=== PATIENT | female | born 1955 | race Caucasian/White ===

== ENCOUNTER 2018-01-03 17:07 | Emergency (ER) | payer OTHER ==
[2018-01-03 17:13] VITALS: BP 195/99; BMI 24.9
--- NOTE | 2018-01-03 17:54 | DR.GENAD ---
HPI - PCP Primary Care Physician: edson - Complaint/Symptoms Chief Complaint Doctors Comments: Patient states that she had neck pain for some times now but recently admits to pain with ROM. Chief Complaint:: pt stated she has a history of bulging disk in her neck and about 3 hours ago the pain got worse. - Source History Provided: Patient - Mode of Arrival Mode of Arrival: Ambulatory - Timing Onset of Chief Complaint: 01/03/18 PMH - PMH Past Medical History: Yes Past Medical History: Anemia, Arthritis, CVA, Depression, Dyslipidemia, Hypertension Past Surgical History: Yes Surgical History: Appendectomy, Thyroidectomy, Tonsillectomy - Family History History of Family Medical Conditions: Yes Family Medical History: Diabetes Mellitus, [place], Coronary Artery Disease, Hypertension - Social History Does patient currently use any type of tobacco product: No Have you used tobacco products in the last 12 months: No Type of Tobacco Use: None Does any household member use tobacco: No Alcohol Use: None Do you use any recreational Drugs:: No Lives With: Family Lives Where: Home - infectious screening In the last 2 months have you had wt loss of >10#?: NO Have you had fever, night sweats or hemotysis?: No Have you traveled outside the country in the last 6 months?: No Isolation: Standard ROS - Review of Systems Eyes: No Symptoms Reported ENTM: No Symptoms Reported Respiratoy: No Symptoms Reported Cardiovascular: No Symptoms Reported Gastrointestinal/Abdominal: No Symptoms Reported Genitourinary: No Symptoms Reported Neurological: No Symptoms Reported Musculoskeletal: No Symptoms Reported Integumentary: No Symptoms Reported Hematologic/Lymphatic: No Symptoms Reported Endocrine: No Symptoms Reported Psychiatric: No Symptoms Reported All Other Systems: Reviewed and Negative PE - Vital Signs Vitals: Temperature 98.9 F Pulse Rate 60 Respiratory Rate 16 Blood Pressure [Right Arm] 182/95 Blood Pressure [Left Arm] 164/74 Blood Pressure 195/99 O2 Sat by Pulse Oximetry 99 - General Limitations: No Limitations General Appearance: Alert, In No Apparent Distress - Head Head Exam: Normal Inspection, Atraumatic - Eyes Eye exam: Normal Appearance, PERRL, EOMI - ENT ENT Exam: Normal Exam External Ear Exam: Normal External Inspection TM/Canal Exam: Bilateral Normal Nose Exam: Normal Nose Exam Mouth Exam: Normal Inspection Throat Exam: Normal Inspection - Neck Neck Exam: Normal Inspection, Full ROM - Chest Chest Inspection: Normal Inspection - Respiratory Respiratory Exam: Normal Lung Sounds Bilat Respiratory Exam: Bilateral Clear to Auscultation - Cardiovascular Cardiovascular Exam: Regular Rate, Normal Rhythm - Abdominal Exam Abdominal Exam: Normal Inspection, Normal Bowel Sounds Abdominal Tenderness: negative: RUQ, RLQ, LUQ, LLQ, Epigastrium, Suprapubic, Diffuse, Mild, Moderate, Severe, Other - Extremities Extremities Exam: Normal Inspection, Full ROM - Back Back Exam: Normal Inspection - Neurologic Neurological Exam: Alert, Oriented X3, CN II-XII Intact - Psychiatric Psychiatric Exam: Normal Affect, Normal Mood - Skin Skin Exam: Warm, Dry, Intact ROR - XRAY XRAY Interpreted by: Radiologist (Cervical spine: Disc narrowing and osteophyte formation noted at multiple levels. No fracture, bone destruction or subluxation is identified. The odontoid is intact. Impressionn: Moderately severe multilevel degenerative disc disease and spondylosis. No acute fractures identified.) - Diagnosis Discharge Problem: Osteoarthritis Qualifiers: Osteoarthritis location: spine Spinal region: cervical Spinal osteoarthritis complication: unspecified spinal osteoarthritis Qualified Code(s): M47.812 - Spondylosis without myelopathy or radiculopathy, cervical region - Discharge Plan Condition: Stable - Follow ups/Referrals Follow ups/Referrals: SANDER GONZALEZ [Primary Care Provider] - 3 days - Instructions
--- NOTE | 2018-01-03 18:28 | RAD ---
Examination: Cervical spine, three views History: Neck pain, bulging disc Findings: AP, lateral and open-mouth odontoid views demonstrate normal curvature and alignment. Disc narrowing and osteophyte formation noted at multiple levels. No fracture, bone destruction or subluxa tion is identified. The odontoid is intact. Impression: Moderately severe multilevel degenerative disc disease and spondylosis. No acute features identified. Reported By:
[2018-01-03] MEDS ORDERED: TORADOL 60 MG VIAL IM ONE ×2 (18:40→18:45)
[2018-01-03] MEDS ORDERED: TORADOL 60 MG VIAL ONE (18:43)
== END 2018-01-03 19:02 | disposition home or self-care (01) ==
LOC: ER 17:20
DX: M47.812 Spondylosis without myelopathy or radiculopathy, cervical region (principal)
CPT/HCPCS: 72040; 96372; 99282; J1885

== ENCOUNTER → 2018-02-23 | Outpatient (CLI) | payer OTHER | LOC: LAB 16:47 | PROVIDERS: ATTEND Internal Medicine Gastroenterology | DX: D64.89 Other specified anemias (principal) | CPT/HCPCS: 36415; 82728; 82746; 83540; 83550 ==

== ENCOUNTER → 2018-03-29 | Outpatient (CLI) | payer OTHER ==
[~2018-03-29] MED LIST: LEXISCAN IV ONE
== END ==
LOC: RAD 08:17
PROVIDERS: ATTEND Internal Medicine Cardiovascular Disease
DX: I25.10 Atherosclerotic heart disease of native coronary artery without angina pectoris (principal)
CPT/HCPCS: 78452; 93017; A4222; A9502; J2785

== ENCOUNTER 2018-06-23 11:52 | Observation (INO) ==
[2018-06-23 15:18] VITALS: BMI 25.8
[2018-06-23] MEDS ORDERED: CATAPRES TAB 0.1 MG PO PRN (16:46)
[2018-06-23] MEDS ORDERED: APRESOLINE INJ 20 MG VIAL IVP PRN (16:46)
[2018-06-23] MEDS ORDERED: BENADRYL INJ 50 MG VIAL IVP PRN (16:49)
[2018-06-23] MEDS ORDERED: KENALOG CREAM ONE (17:10)
[2018-06-23] MEDS: KENALOG CREAM TOP SCH ×2 (17:13→22:00)
[2018-06-23] MEDS: ZESTRIL TAB 10 MG PO SCH ×2 (17:13→22:01)
[2018-06-23 17:15] LABS: BASOPHILS # (AUTO) 0.1 X10^3/uL (0.0-0.1); BASOPHILS % (AUTO) 1.1 % (0.2-1.0); EOSINOPHILS # (AUTO) 0.1 x10^3/uL (0.0-0.2); EOSINOPHILS % (AUTO) 2.2 % (0.9-2.9); HEMATOCRIT 29.7 % (36.0-47.0); HEMOGLOBIN 9.4 g/dL (12.0-16.0); LYMPHOCYTES # (AUTO) 1.9 X10^3/uL (1.3-2.9); LYMPHOCYTES % (AUTO) 34.5 % (21.0-51.0); MEAN CORPUSCULAR HGB CONC 31.7 g/dL (33.0-35.0); MEAN CORPUSCULAR VOLUME 75.8 fL (80.0-100.0); MONOCYTES # (AUTO) 0.5 x10^3/uL (0.3-0.8); MONOCYTES % (AUTO) 8.6 % (0.0-13.0); NEUTROPHILS % (AUTO) 53.6 % (42.0-75.0); PLATELET COUNT 248 X10^3/uL (150.0-450.0); RED BLOOD COUNT 3.92 X10^6/uL (3.5-5.4); RED CELL DISTRIBUTION WIDTH 17.7 % (11.6-16.5); WHITE BLOOD COUNT 5.5 X10^3/uL (3.6-10.0)
[2018-06-23 17:21] LABS: ANISOCYTOSIS SLIGHT; HYPOCHROMASIA 1+; PLATELET MORPHOLOGY COMMENT NORMAL (NORMAL)
[2018-06-23 17:22] LABS: MICROCYTOSIS SLIGHT
[2018-06-23 17:33] LABS: BLOOD UREA NITROGEN 14 mg/dL (7-18); CALCIUM 8.8 mg/dL (8.5-10.1); CHLORIDE 105 mmol/L (98-107); CREATININE 0.76 mg/dL (0.55-1.02); SODIUM 141 mmol/L (136-145); TROPONIN I < 0.02 ng/mL (0-1.5); eGFR NON BLACK RACES > 60 (>60)
[2018-06-23 17:37] LABS: ALANINE AMINOTRANSFERASE 19 Units/L (12-78); ALBUMIN 3.7 g/dL (3.4-5.0); ALKALINE PHOSPHATASE 171 Units/L (46-116); ASPARTATE AMINO TRANSFERASE 19 Units/L (15-37); CREATINE KINASE 126 Units/L (26-192); CREATINE KINASE MB 1.3 ng/mL (0-4.0); TOTAL PROTEIN 7.2 g/dL (6.4-8.2)
--- NOTE | 2018-06-23 17:58 | DR.H&P ---
H&P - History & Physical for Day of: H&P Date: 06/23/18 - Chief Complaint Chief Complaint: "feels bad" elevated blood pressure, rash - History of Present Illness History of Present Illness: 62 WF DIRECT ADMIT FROM DR JOE OFFICE WITH CO WEAKNESS, ELEVATED BP AND RASH TO LEFT THIGH AND FOREARM. PT BP IN OFFICE 212/ 120, TREATED WITH CATAPRES 0.1MG X1 WITHOUT IMPROVEMENT. PT ALSO CO FATIGUE AND SOB,PT HAS RECENT OF ANEMIA CURRENTLY UNDER THE CARE OF DR FOURNIER FOR GI. PT HAS RASH TO LEFT LLE AND LEFT ARM ONSET AFTER WORKING IN [employer] YESTERDAY, TAKEN BENADRYL PO FOR ITCHING. PT ADMITTED TO [facility] FOR TREATMENT AND EVALUATION OF HYPERTENSIVE URGENCY, SYMPOMATIC ANEMIA, PALENCIA AND WEAKNESS. - Past Medical History Past Medical History: Anemia, Arthritis, CVA, Depression, Dyslipidemia, Hypertension - Past Surgical History Surgical History: Appendectomy, Thyroidectomy, Tonsillectomy - Family History Family Medical History: Diabetes Mellitus, [place], Coronary Artery Disease, Hypertension - Social History Does patient currently use any type of tobacco product: No Have you used tobacco products in the last 12 months: No Type of Tobacco Use: None Does any household member use tobacco: No Alcohol Use: None Drug Use: None - Medications Home Medications: codeine Adverse Reaction (Verified 06/23/18 14:52) CONTINUE taking the following medications clonidine HCl 0.1 mg PO DAILY PRN 06/23/18 [History] iron-folic acid-mv, min cmb#15 [Hemocyte-Plus] 1 cap PO DAILY 06/23/18 [History] lisinopril 10 mg PO BID 06/23/18 [History] zolpidem 10 mg PO HS 06/23/18 [History] - Review of Systems Constitutional: Weakness, Malaise Eyes: No Symptoms Reported ENT: No Symptoms Reported Respiratory: SOB with Excertion Cardiovascular: Palpitations, Edema Gastrointestinal: Nausea Genitourinary: No Symptoms Reported Musculoskeletal: Back Pain Skin: Rash Neurological: Weakness - Physical Exam Vital Signs: Temperature 97.8 F Pulse Rate [Right Brachial] 65 Respiratory Rate 18 Blood Pressure [Right Arm] 169/89 Blood Pressure [Left Arm] 164/74 Blood Pressure 195/99 O2 Sat by Pulse Oximetry 95 Oriented: Normal Eyes: Normal Ear: Normal Nose: Normal Throat: Normal Respiratory: RLL Diminished, LLL Diminished Cardiovascular: Tachycardia, Edema : Normal Auscultation: Bowel Sounds: Normal Palpation: Normal Tenderness: Normal Skin: Decreased Turgur, Rash (RED MACULAR RASH TO LEFT UPPER THIGH ADN LEFT UPPER ARM) Musculoskeletal: Back:Lumbar Psychiatric: Anxiety Affect: Anxious, Depressed Speech Pattern: Clear - Assessment/Plan (1) Hypertensive urgency Status: Acute Plan: ADMIT, SERIAL CE AND EKG. OBTAIN RECENT CARDIAC STRESS TEST RESULTS FOR [facility]. IV HYDRALAZINE. ADMISSION LABS CBC CMP UA ANEMIA PANEL. CXR ON ADMISSION. RESUME HOME MEDS, TOPICAL STEROIDS FOR CONTACT DERM. BP CONTROL (2) Symptomatic anemia Status: Acute (3) Contact dermatitis Status: Acute (4) Hypertension Qualifiers: Hypertension type: essential hypertension Qualified Code(s): I10 - Essential (primary) hypertension Status: Chronic (5) Depression Status: Chronic (6) CAD (coronary artery disease) Status: Chronic (7) GERD (gastroesophageal reflux disease) Status: Chronic (8) Anxiety Status: Chronic - Allergies Allergies/Adverse Reactions: Allergies Allergy/AdvReac Type Severity Reaction Status Date / Time victoria AdvReac Verified 06/23/18 14:52
[2018-06-23] MEDS: HEMOCYTE-PLUS PO SCH (18:19)
[2018-06-23] MEDS: K-DUR TAB 20 MEQ PO SCH (18:19)
[2018-06-23] MEDS: ZOFRAN INJ 4 MG VIAL IVP PRN (18:28)
[2018-06-23 18:47] LABS: IRON 19 ug/dL (50-175)
[2018-06-23] MEDS: AMBIEN PO SCH (20:36)
--- NOTE | 2018-06-23 20:40 | RAD ---
Indication: Difficulty breathing Exam: Portable chest Comparison: 06/12/2016 Findings: The heart is mildly enlarged and more prominent. The pulmonary vessels are normal. The lung s are mildly hyperinflated. No consolidation or effusion is seen. Impression: Mild cardiomegaly with no acute pulmonary abnormality. Reported By:
[2018-06-24] MEDS: KENALOG CREAM TOP SCH ×3 (05:13→21:01)
[2018-06-24 05:38] LABS: ALANINE AMINOTRANSFERASE 16 Units/L (12-78); ALBUMIN 2.9 g/dL (3.4-5.0); ALKALINE PHOSPHATASE 144 Units/L (46-116); ASPARTATE AMINO TRANSFERASE 14 Units/L (15-37); BLOOD UREA NITROGEN 12 mg/dL (7-18); CALCIUM 8.2 mg/dL (8.5-10.1); CARBON DIOXIDE 26.7 mmol/L (21-32); CHLORIDE 108 mmol/L (98-107); COR CA(FOR HYPOALB) 9.1 mg/dL (8.5-10.1); CREATININE 0.65 mg/dL (0.55-1.02); SODIUM 141 mmol/L (136-145); eGFR NON BLACK RACES > 60 (>60)
[2018-06-24 05:41] LABS: BASOPHILS % (AUTO) 0.9 % (0.2-1.0); EOSINOPHILS # (AUTO) 0.1 x10^3/uL (0.0-0.2); EOSINOPHILS % (AUTO) 2.4 % (0.9-2.9); HEMATOCRIT 25.6 % (36.0-47.0); HEMOGLOBIN 8.2 g/dL (12.0-16.0); LYMPHOCYTES # (AUTO) 1.5 X10^3/uL (1.3-2.9); LYMPHOCYTES % (AUTO) 30.8 % (21.0-51.0); MEAN CORPUSCULAR HEMOGLOBIN 24.3 pg (27.0-34.0); MEAN PLATELET VOLUME 8.4 fL (7.4-11.0); MONOCYTES # (AUTO) 0.4 x10^3/uL (0.3-0.8); MONOCYTES % (AUTO) 8.3 % (0.0-13.0); NEUTROPHILS # (AUTO) 2.8 x10^3/uL (2.2-4.8); NEUTROPHILS % (AUTO) 57.6 % (42.0-75.0); PLATELET COUNT 219 X10^3/uL (150.0-450.0); RED BLOOD COUNT 3.36 X10^6/uL (3.5-5.4); RED CELL DISTRIBUTION WIDTH 17.6 % (11.6-16.5); WHITE BLOOD COUNT 4.9 X10^3/uL (3.6-10.0)
[2018-06-24 06:04] LABS: PLATELET MORPHOLOGY COMMENT NORMAL (NORMAL)
[2018-06-24 06:37] LABS: BILIRUBIN,URINE NEGATIVE (NEGATIVE); BLOOD/HEMOGLOBIN,URINE NEGATIVE (NEGATIVE); GLUCOSE, URINE NEGATIVE (NEGATIVE); KETONES,URINE NEGATIVE (NEGATIVE); LEUKOCYTE ESTERASE ,URINE 1+ (NEGATIVE); NITRITES,URINE NEGATIVE (NEGATIVE); PH,URINE 6.5 (5.0 - 8.0); PROTEIN,URINE NEGATIVE (NEGATIVE); UROBILINOGEN,URINE NORMAL (NORMAL)
[2018-06-24 06:46] LABS: APPEARANCE,URINE CLEAR (CLEAR); COLOR,URINE YELLOW (YELLOW)
[2018-06-24 06:47] LABS: BACTERIA,URINE NEGATIVE /HPF (NEGATIVE); CALCIUM OXALATE CRYSTALS,UR RARE /HPF (NEGATIVE); RBC,URINE NONE SEEN /HPF (NONE SEEN); SQUAMOUS EPITHELIAL CELL,UR RARE /HPF (NEGATIVE)
[2018-06-24] MEDS: ZOFRAN INJ 4 MG VIAL IVP PRN ×2 (07:50→20:15)
[2018-06-24] MEDS ORDERED: PHARMACY CONSULT - DOSE _____ XX SCH (09:00)
[2018-06-24] MEDS: HEMOCYTE-PLUS PO SCH (09:03)
[2018-06-24] MEDS: ZESTRIL TAB 10 MG PO SCH ×2 (09:03→20:15)
[2018-06-24] MEDS: K-DUR TAB 20 MEQ PO SCH (09:04)
[2018-06-24] MEDS ORDERED: PROTONIX INJ 40 MG VIAL IVP ONE (09:09)
[2018-06-24] MEDS ORDERED: NS 100 ML IV 100 ML IV ONE (10:40)
[2018-06-24] MEDS ORDERED: NS 100 ML IV 100 ML with VENOFER 400 MG IV NR ×2 (11:00)
--- NOTE | 2018-06-24 17:59 | PCM.PROG ---
Progress Note - Progress Note for Day of Date of Exam: 06/24/18 - Subjective Subjective: PT IS 62 WF DIRECT ADMIT FROM DR GONZALEZ OFFICE WITH CO ELEVATED BP , FATIGUE SYMPTOMATIC ANEMIA. PT HAD HTN URGENCY IN THE OFFICE. PT WAS ADMITTED FOR TREATMENT OF ELEVATED BP, WHICH IS MUCH IMPROVED THIS AM. PT WAS ANEMIA WITH IRON DEFICIENCY, PT CURRENTLY RECEIVING IV IRON INFUSION. PT HAS MILD RASH TO LUE AND LLE USING TOPICAL STEROIDS WITH IMPROVEMENT THIS AM.PT CO NAUSEA AND PALENCIA. PLAN TO CONTINUE PPI THERAPY, NASUEA CONTROL, BP MONITORING OCCULT STOOL, AM LABS - Past Medical Family Social History Past Med/Fam/Surg Hx: No changes since H&P Allergies: Allergies codeine Adverse Reaction (Verified 06/23/18 14:52) - Review of Systems ROS: No change since H&P - Vital Signs and I&O's Vital Signs: Temperature 98.6 F Pulse Rate [Right Brachial] 65 Respiratory Rate 18 Blood Pressure [Right Arm] 165/80 Blood Pressure [Left Arm] 164/74 Blood Pressure 195/99 O2 Sat by Pulse Oximetry 96 Intake and Output: Intake & Output 06/22/18 06/23/18 06/24/18 06/25/18 11:59 11:59 11:59 11:59 Intake Total 320 / 320 340 / 340 Balance 320 / 320 340 / 340 - Physical Exam Oriented: Normal Eyes: Normal Ear: Normal Nose: Normal Throat: Normal Respiratory: Normal Cardiovascular: Tachycardia, Edema : Normal Auscultation: Bowel Sounds: Normal Tenderness: Normal Skin: Decreased Turgur, Rash (RED MACULAR RASH TO LEFT UPPER THIGH ADN LEFT UPPER ARM) Musculoskeletal: Back:Lumbar Psychiatric: Anxiety Affect: Anxious, Depressed Speech Pattern: Clear, Appropriate - Laboratory and Diagnostics Result Diagrams: 06/25/18 04:00 06/25/18 04:00 Labs: Laboratory WBC 4.9 X10^3/uL (3.6-10.0) 06/24/18 04:05 RBC 3.36 X10^6/uL (3.5-5.4) L 06/24/18 04:05 Hgb 8.2 g/dL (12.0-16.0) L 06/24/18 04:05 Hct 25.6 % (36.0-47.0) L 06/24/18 04:05 MCV 76.0 fL (80.0-100.0) L 06/24/18 04:05 MCH 24.3 pg (27.0-34.0) L 06/24/18 04:05 MCHC 32.0 g/dL (33.0-35.0) L 06/24/18 04:05 RDW 17.6 % (11.6-16.5) H 06/24/18 04:05 Plt Count 219 X10^3/uL (150.0-450.0) 06/24/18 04:05 Plt Count Comment Adequate (ADEQUATE) 06/24/18 04:05 MPV 8.4 fL (7.4-11.0) 06/24/18 04:05 Neut % (Auto) 57.6 % (42.0-75.0) 06/24/18 04:05 Lymph % (Auto) 30.8 % (21.0-51.0) 06/24/18 04:05 [place] % (Auto) 8.3 % (0.0-13.0) 06/24/18 04:05 Eos % (Auto) 2.4 % (0.9-2.9) 06/24/18 04:05 Baso % (Auto) 0.9 % (0.2-1.0) 06/24/18 04:05 Neut # (Auto) 2.8 x10^3/uL (2.2-4.8) 06/24/18 04:05 Lymph # (Auto) 1.5 X10^3/uL (1.3-2.9) 06/24/18 04:05 [place] # (Auto) 0.4 x10^3/uL (0.3-0.8) 06/24/18 04:05 Eos # (Auto) 0.1 x10^3/uL (0.0-0.2) 06/24/18 04:05 Baso # (Auto) 0.0 X10^3/uL (0.0-0.1) 06/24/18 04:05 Absolute Nucleated RBC 0.1 /100WBC 06/24/18 04:05 Plt Morphology Comment Normal (NORMAL) 06/24/18 04:05 RBC Morphology Normal (NORMAL) 06/24/18 04:05 Hypochromasia 1+ A 06/23/18 17:01 Anisocytosis Slight A 06/23/18 17:01 Microcytosis Slight A 06/23/18 17:01 Sodium 141 mmol/L (136-145) 06/24/18 04:05 Corrected Sodium TNP 06/24/18 04:05 Potassium 3.6 mmol/L (3.5-5.1) 06/24/18 04:05 Chloride 108 mmol/L (98-107) H 06/24/18 04:05 Carbon Dioxide 26.7 mmol/L (21-32) 06/24/18 04:05 BUN 12 mg/dL (7-18) 06/24/18 04:05 Creatinine 0.65 mg/dL (0.55-1.02) 06/24/18 04:05 Est GFR (MDRD) Af Amer > 60 (>60) 06/24/18 04:05 Est GFR (MDRD) Non-Af > 60 (>60) 06/24/18 04:05 Glucose 98 mg/dL (65-99) 06/24/18 04:05 Calcium 8.2 mg/dL (8.5-10.1) L 06/24/18 04:05 Corrected Calcium 9.1 mg/dL (8.5-10.1) 06/24/18 04:05 Magnesium 2.1 mg/dL (1.7-2.9) 06/23/18 17:01 Iron 19 ug/dL (50-175) L 06/23/18 17:01 Transferrin 304 mg/dL (202-364) 06/23/18 17:01 Ferritin 5 ng/mL (8-252) L 06/23/18 17:01 Total Bilirubin 0.10 mg/dL (0.2-1.0) L 06/24/18 04:05 AST 14 Units/L (15-37) L 06/24/18 04:05 ALT 16 Units/L (12-78) 06/24/18 04:05 Alkaline Phosphatase 144 Units/L (46-116) H 06/24/18 04:05 Creatine Kinase 126 Units/L (26-192) 06/23/18 17:01 CK-MB (CK-2) 1.3 ng/mL (0-4.0) 06/23/18 17:01 CK/CKMB % Calc 1.0 % (<4) 06/23/18 17:01 Troponin I < 0.02 ng/mL (0-1.5) 06/23/18 17:01 Total Protein 6.0 g/dL (6.4-8.2) L 06/24/18 04:05 Albumin 2.9 g/dL (3.4-5.0) L 06/24/18 04:05 Globulin 3.1 g/dL (2.5-4.5) 06/24/18 04:05 Albumin/Globulin Ratio 0.9 Ratio (1.1-2.1) L 06/24/18 04:05 Vitamin B12 183 pg/mL (193-986) L 06/23/18 17:01 Folate 19.4 ng/mL (>8.6) 06/23/18 17:01 Specimen Type Random urine 06/24/18 06:26 Urine Color Yellow (YELLOW) 06/24/18 06:26 Urine Appearance Clear (CLEAR) 06/24/18 06:26 Urine pH 6.5 (5.0 - 8.0) 06/24/18 06:26 Ur Specific [place] 1.015 (1.000-1.030) 06/24/18 06:26 Urine Protein Negative (NEGATIVE) 06/24/18 06:26 Urine Glucose (UA) Negative (NEGATIVE) 06/24/18 06:26 Urine Ketones Negative (NEGATIVE) 06/24/18 06:26 Urine Occult Blood Negative (NEGATIVE) 06/24/18 06:26 Urine Nitrite Negative (NEGATIVE) 06/24/18 06:26 Urine Bilirubin Negative (NEGATIVE) 06/24/18 06:26 Urine Urobilinogen Normal (NORMAL) 06/24/18 06:26 Ur Leukocyte Esterase 1+ (NEGATIVE) 06/24/18 06:26 Urine RBC None seen /HPF (NONE SEEN) 06/24/18 06:26 Urine WBC 0-2 /HPF (NONE SEEN) 06/24/18 06:26 Ur Squamous Epith Cells Rare /HPF (NEGATIVE) 06/24/18 06:26 Calcium Oxalate Crystal Rare /HPF (NEGATIVE) 06/24/18 06:26 Urine Bacteria Negative /HPF (NEGATIVE) 06/24/18 06:26 Ur Culture Indicated? No/not indicated 06/24/18 06:26 - Plan (1) Hypertensive urgency Status: Acute Plan: IV IRON INFUSION. PT CO NAUSEA AND PALENCIA. PLAN TO CONTINUE PPI THERAPY, NASUEA CONTROL, BP MONITORING OCCULT STOOL, AM LABS. RESUME HOME MEDS, TOPICAL STEROIDS FOR CONTACT DERM. BP CONTROL (2) Symptomatic anemia Status: Acute (3) Contact dermatitis Status: Acute (4) Hypertension Status: Chronic Qualifiers: Hypertension type: essential hypertension Qualified Code(s): I10 - Essential (primary) hypertension (5) Depression Status: Chronic (6) CAD (coronary artery disease) Status: Chronic (7) GERD (gastroesophageal reflux disease) Status: Chronic (8) Anxiety Status: Chronic
[2018-06-24] MEDS: AMBIEN PO SCH (20:15)
[2018-06-25] MEDS: KENALOG CREAM TOP SCH (05:03)
[2018-06-25 05:21] LABS: BASOPHILS % (AUTO) 0.4 % (0.2-1.0); EOSINOPHILS # (AUTO) 0.1 x10^3/uL (0.0-0.2); EOSINOPHILS % (AUTO) 0.8 % (0.9-2.9); HEMATOCRIT 31.9 % (36.0-47.0); HEMOGLOBIN 9.9 g/dL (12.0-16.0); LYMPHOCYTES # (AUTO) 1.7 X10^3/uL (1.3-2.9); LYMPHOCYTES % (AUTO) 18.5 % (21.0-51.0); MEAN CORPUSCULAR HEMOGLOBIN 23.7 pg (27.0-34.0); MEAN CORPUSCULAR HGB CONC 31.2 g/dL (33.0-35.0); MEAN CORPUSCULAR VOLUME 76.2 fL (80.0-100.0); MEAN PLATELET VOLUME 8.3 fL (7.4-11.0); MONOCYTES # (AUTO) 0.7 x10^3/uL (0.3-0.8); MONOCYTES % (AUTO) 7.7 % (0.0-13.0); NEUTROPHILS # (AUTO) 6.8 x10^3/uL (2.2-4.8); NEUTROPHILS % (AUTO) 72.6 % (42.0-75.0); PLATELET COUNT 279 X10^3/uL (150.0-450.0); RED BLOOD COUNT 4.18 X10^6/uL (3.5-5.4); RED CELL DISTRIBUTION WIDTH 17.4 % (11.6-16.5); WHITE BLOOD COUNT 9.4 X10^3/uL (3.6-10.0)
[2018-06-25 05:39] LABS: ALANINE AMINOTRANSFERASE 15 Units/L (12-78); ALBUMIN 2.9 g/dL (3.4-5.0); ALKALINE PHOSPHATASE 144 Units/L (46-116); ASPARTATE AMINO TRANSFERASE 14 Units/L (15-37); BLOOD UREA NITROGEN 15 mg/dL (7-18); CALCIUM 8.3 mg/dL (8.5-10.1); CARBON DIOXIDE 26.8 mmol/L (21-32); CHLORIDE 108 mmol/L (98-107); COR CA(FOR HYPOALB) 9.2 mg/dL (8.5-10.1); CREATININE 0.87 mg/dL (0.55-1.02); SODIUM 142 mmol/L (136-145); TOTAL PROTEIN 5.9 g/dL (6.4-8.2); eGFR NON BLACK RACES > 60 (>60)
[2018-06-25 05:42] LABS: HYPOCHROMASIA SLIGHT; PLATELET MORPHOLOGY COMMENT NORMAL (NORMAL)
[2018-06-25] MEDS: K-DUR TAB 20 MEQ PO SCH (08:51)
[2018-06-25] MEDS: ZESTRIL TAB 10 MG PO SCH (08:51)
[2018-06-25] MEDS: HEMOCYTE-PLUS PO SCH (08:51)
[2018-06-25] MEDS: ZOFRAN INJ 4 MG VIAL IVP PRN (08:57)
[2018-06-25] MEDS ORDERED: NS 100 ML IV 100 ML with VENOFER 200 MG IV NR ×2 (10:00)
[2018-06-25] MEDS ORDERED: PHARMACY CONSULT - DOSE _____ XX SCH (10:00)
[2018-06-25] MEDS ORDERED: CARAFATE PO SCH (11:30)
[2018-06-25 13:18] VITALS: BP 156/99
--- NOTE | 2018-06-25 15:00 | PCM.DCPLAN ---
Discharge Summary - Admission Date Date of Admission: 06/23/18 - Discharge Date Discharge Date: 06/25/18 - Admission Diagnoses (1) Hypertensive urgency Status: Acute (2) Symptomatic anemia Status: Acute (3) Contact dermatitis Status: Acute (4) Hypertension Status: Chronic (5) Depression Status: Chronic (6) CAD (coronary artery disease) Status: Chronic (7) GERD (gastroesophageal reflux disease) Status: Chronic (8) Anxiety Status: Chronic - Discharge Diagnoses Discharge Diagnosis: SAME ADMISSION, RESOLUTION OF HYPERTENSIVE URGENCY - Discharge Medications Discharge Medications: Home Medication List clonidine HCl 0.1 mg PO DAILY PRN 06/23/18 [History] iron-folic acid-mv, min cmb#15 [Hemocyte-Plus] 1 cap PO DAILY 06/23/18 [History] lisinopril 10 mg PO BID 06/23/18 [History] zolpidem 10 mg PO HS 06/23/18 [History] Prescriptions: - Hospital Course Vital Signs: Temperature 98.3 F Pulse Rate [Left Brachial] 67 Pulse Rate [Right Brachial] 66 Respiratory Rate 20 Blood Pressure [Right Arm] 156/77 Blood Pressure [Left Arm] 156/99 Blood Pressure 195/99 O2 Sat by Pulse Oximetry 94 Latest Lab Results: Laboratory Last Values WBC 9.4 X10^3/uL (3.6-10.0) 06/25/18 04:00 RBC 4.18 X10^6/uL (3.5-5.4) 06/25/18 04:00 Hgb 9.9 g/dL (12.0-16.0) L 06/25/18 04:00 Hct 31.9 % (36.0-47.0) L 06/25/18 04:00 MCV 76.2 fL (80.0-100.0) L 06/25/18 04:00 MCH 23.7 pg (27.0-34.0) L 06/25/18 04:00 MCHC 31.2 g/dL (33.0-35.0) L 06/25/18 04:00 RDW 17.4 % (11.6-16.5) H 06/25/18 04:00 Plt Count 279 X10^3/uL (150.0-450.0) 06/25/18 04:00 Plt Count Comment Adequate (ADEQUATE) 06/25/18 04:00 MPV 8.3 fL (7.4-11.0) 06/25/18 04:00 Neut % (Auto) 72.6 % (42.0-75.0) 06/25/18 04:00 Lymph % (Auto) 18.5 % (21.0-51.0) L 06/25/18 04:00 [place] % (Auto) 7.7 % (0.0-13.0) 06/25/18 04:00 Eos % (Auto) 0.8 % (0.9-2.9) L 06/25/18 04:00 Baso % (Auto) 0.4 % (0.2-1.0) 06/25/18 04:00 Neut # (Auto) 6.8 x10^3/uL (2.2-4.8) H 06/25/18 04:00 Lymph # (Auto) 1.7 X10^3/uL (1.3-2.9) 06/25/18 04:00 [place] # (Auto) 0.7 x10^3/uL (0.3-0.8) 06/25/18 04:00 Eos # (Auto) 0.1 x10^3/uL (0.0-0.2) 06/25/18 04:00 Baso # (Auto) 0.0 X10^3/uL (0.0-0.1) 06/25/18 04:00 Absolute Nucleated RBC 0.1 /100WBC 06/25/18 04:00 Plt Morphology Comment Normal (NORMAL) 06/25/18 04:00 RBC Morphology Abnormal (NORMAL) A 06/25/18 04:00 Hypochromasia Slight A 06/25/18 04:00 Anisocytosis Slight A 06/23/18 17:01 Microcytosis Slight A 06/23/18 17:01 Sodium 142 mmol/L (136-145) 06/25/18 04:00 Corrected Sodium TNP 06/25/18 04:00 Potassium 4.3 mmol/L (3.5-5.1) 06/25/18 04:00 Chloride 108 mmol/L (98-107) H 06/25/18 04:00 Carbon Dioxide 26.8 mmol/L (21-32) 06/25/18 04:00 BUN 15 mg/dL (7-18) 06/25/18 04:00 Creatinine 0.87 mg/dL (0.55-1.02) 06/25/18 04:00 Est GFR (MDRD) Af Amer > 60 (>60) 06/25/18 04:00 Est GFR (MDRD) Non-Af > 60 (>60) 06/25/18 04:00 Glucose 105 mg/dL (65-99) H 06/25/18 04:00 Calcium 8.3 mg/dL (8.5-10.1) L 06/25/18 04:00 Corrected Calcium 9.2 mg/dL (8.5-10.1) 06/25/18 04:00 Magnesium 2.1 mg/dL (1.7-2.9) 06/23/18 17:01 Iron 19 ug/dL (50-175) L 06/23/18 17:01 Transferrin 304 mg/dL (202-364) 06/23/18 17:01 Ferritin 5 ng/mL (8-252) L 06/23/18 17:01 Total Bilirubin 0.10 mg/dL (0.2-1.0) L 06/25/18 04:00 AST 14 Units/L (15-37) L 06/25/18 04:00 ALT 15 Units/L (12-78) 06/25/18 04:00 Alkaline Phosphatase 144 Units/L (46-116) H 06/25/18 04:00 Creatine Kinase 126 Units/L (26-192) 06/23/18 17:01 CK-MB (CK-2) 1.3 ng/mL (0-4.0) 06/23/18 17:01 CK/CKMB % Calc 1.0 % (<4) 06/23/18 17:01 Troponin I < 0.02 ng/mL (0-1.5) 06/23/18 17:01 Total Protein 5.9 g/dL (6.4-8.2) L 06/25/18 04:00 Albumin 2.9 g/dL (3.4-5.0) L 06/25/18 04:00 Globulin 3.0 g/dL (2.5-4.5) 06/25/18 04:00 Albumin/Globulin Ratio 1.0 Ratio (1.1-2.1) L 06/25/18 04:00 Vitamin B12 183 pg/mL (193-986) L 06/23/18 17:01 Folate 19.4 ng/mL (>8.6) 06/23/18 17:01 Specimen Type Random urine 06/24/18 06:26 Urine Color Yellow (YELLOW) 06/24/18 06:26 Urine Appearance Clear (CLEAR) 06/24/18 06:26 Urine pH 6.5 (5.0 - 8.0) 06/24/18 06:26 Ur Specific [place] 1.015 (1.000-1.030) 06/24/18 06:26 Urine Protein Negative (NEGATIVE) 06/24/18 06:26 Urine Glucose (UA) Negative (NEGATIVE) 06/24/18 06:26 Urine Ketones Negative (NEGATIVE) 06/24/18 06:26 Urine Occult Blood Negative (NEGATIVE) 06/24/18 06:26 Urine Nitrite Negative (NEGATIVE) 06/24/18 06:26 Urine Bilirubin Negative (NEGATIVE) 06/24/18 06:26 Urine Urobilinogen Normal (NORMAL) 06/24/18 06:26 Ur Leukocyte Esterase 1+ (NEGATIVE) 06/24/18 06:26 Urine RBC None seen /HPF (NONE SEEN) 06/24/18 06:26 Urine WBC 0-2 /HPF (NONE SEEN) 06/24/18 06:26 Ur Squamous Epith Cells Rare /HPF (NEGATIVE) 06/24/18 06:26 Calcium Oxalate Crystal Rare /HPF (NEGATIVE) 06/24/18 06:26 Urine Bacteria Negative /HPF (NEGATIVE) 06/24/18 06:26 Ur Culture Indicated? No/not indicated 06/24/18 06:26 Hospital Course: T IS 62 WF DIRECT ADMIT FROM DR GONZALEZ OFFICE WITH CO ELEVATED BP, FATIGUE SYMPTOMATIC ANEMIA. PT HAD HTN URGENCY IN THE OFFICE. PT WAS ADMITTED FOR TREATMENT OF ELEVATED BP AND "FEELING BAD, TIRED"PT WAS ANEMIA WITH IRON DEFICIENCY, PT CURRENTLY RECEIVING IV IRON INFUSION. PT HAS MILD RASH TO LUE AND LLE USING TOPICAL STEROIDS WITH IMPROVEMENT.PT BP ON ADMISSION 182/95 AFTER TREATMENT IN OFFICE WITH PO CATAPRES .1 PT BP STABLE THIS AM UPON D/C 135/60. PT HGB 9.4 ON ADMISSION, 8.2 AFTER HYDRATION. PT RECEIVED IRON INFUSION WITH HGB 9.9 UPON D/C. PT VERBALIZED SHE FEELS BETTER. PT UNDER THE CARE OF GI, SWALLOWED CAMERA FOR UPPER GI ONE WEEK AGO RESULTS PENDING. PT ALSO SEEN RECENTLY BY [employer] FOR ROUTINE VISIT FOR CAD WITH STRESS TEST PENDING. DISCUSSED NEED TO CONTINUE PPI THERAPY, NASUEA CONTROL, BP MONITORING. PT GIVEN ORDER FOR STOOL STUDIES ON OP BASIS DUE TO UNABILITY TO PROVIDE SPECIMEN DURING THIS ADMISSION. PT INSTRUCTED TO BE COMPLIANT WITH PRESCRIPTION MEDICATION, KEEP BP DIARY, REST AND HYDRATE, RETURN TO ER IF CONDITION RETURNS OR WORSENS FOLLOW UP WITH DR GONZALEZ IN ONE WEEK, GI AND CARDIOLOGY SCHEDULED. - Discharge Plan Disposition: HOME, SELF-CARE Condition: Stable - Follow ups/Referrals Follow ups/Referrals: NOE BLAND [Nurse Practitioner] - 07/05/18 2:45 pm - Instructions Instructions: Anemia, Stool for Occult Blood Test, Hypertension, [id number], Diarrhea, Adult, [id number] Additional Instructions: Collect stool specimen and bring to hospital for stool studies. Forms: Patient Portal
== END 2018-06-25 12:45 | disposition home or self-care (01) ==
LOC: MED/SURG
PROVIDERS: ADMIT Internal Medicine; ATTEND Internal Medicine
DX: F41.8 Other specified anxiety disorders; I25.10 Atherosclerotic heart disease of native coronary artery without angina pectoris; F32.89 Other specified depressive episodes; I10 Essential (primary) hypertension; R94.31 Abnormal electrocardiogram [ECG] [EKG]; I16.0 Hypertensive urgency; R06.02 Shortness of breath; E78.2 Mixed hyperlipidemia; D64.89 Other specified anemias; D50.0 Iron deficiency anemia secondary to blood loss (chronic); R53.1 Weakness; Z79.899 Other long term (current) drug therapy; L25.9 Unspecified contact dermatitis, unspecified cause; R51 Headache
CPT/HCPCS: 36415; 71010; 71045; 80053; 81001; 82550; 82553; 82607; 82728; 82746; 83540; 83735; 84466; 84484; 85025; 93005; 93010; A4222; C9113; G0378; J0360; J1756; J2405; J7050

== ENCOUNTER 2018-06-28 09:17 | Inpatient (IN) ==
[2018-06-28] MEDS ORDERED: NS 1000 ML 1,000 ML ONE (10:50)
[2018-06-28] MEDS ORDERED: NS 100 ML IV + SPIKE MINIBAG* 100 ML IV ONE ×2 (10:50→20:11)
[2018-06-28 11:40] LABS: BASOPHILS % (AUTO) 0.6 % (0.2-1.0); EOSINOPHILS % (AUTO) 0.5 % (0.9-2.9); HEMATOCRIT 30.1 % (36.0-47.0); HEMOGLOBIN 9.7 g/dL (12.0-16.0); LYMPHOCYTES # (AUTO) 1.4 X10^3/uL (1.3-2.9); LYMPHOCYTES % (AUTO) 18.2 % (21.0-51.0); MEAN CORPUSCULAR HEMOGLOBIN 24.6 pg (27.0-34.0); MEAN CORPUSCULAR HGB CONC 32.1 g/dL (33.0-35.0); MEAN CORPUSCULAR VOLUME 76.7 fL (80.0-100.0); MEAN PLATELET VOLUME 7.8 fL (7.4-11.0); MONOCYTES # (AUTO) 0.7 x10^3/uL (0.3-0.8); MONOCYTES % (AUTO) 9.6 % (0.0-13.0); NEUTROPHILS # (AUTO) 5.5 x10^3/uL (2.2-4.8); NEUTROPHILS % (AUTO) 71.1 % (42.0-75.0); PLATELET COUNT 258 X10^3/uL (150.0-450.0); RED BLOOD COUNT 3.92 X10^6/uL (3.5-5.4); RED CELL DISTRIBUTION WIDTH 17.7 % (11.6-16.5); WHITE BLOOD COUNT 7.7 X10^3/uL (3.6-10.0)
[2018-06-28 11:48] VITALS: BMI 24.9
[2018-06-28 11:50] LABS: ALANINE AMINOTRANSFERASE 18 Units/L (12-78); ALBUMIN 3.5 g/dL (3.4-5.0); ALKALINE PHOSPHATASE 163 Units/L (46-116); ASPARTATE AMINO TRANSFERASE 18 Units/L (15-37); BLOOD UREA NITROGEN 10 mg/dL (7-18); CALCIUM 8.9 mg/dL (8.5-10.1); CARBON DIOXIDE 26.2 mmol/L (21-32); CHLORIDE 105 mmol/L (98-107); CREATININE 0.68 mg/dL (0.55-1.02); SODIUM 138 mmol/L (136-145); TOTAL PROTEIN 7.1 g/dL (6.4-8.2); eGFR NON BLACK RACES > 60 (>60)
[2018-06-28] MEDS: TEFLARO IV SCH ×2 (12:03→20:13)
[2018-06-28] MEDS: PROTONIX INJ 40 MG VIAL IVP SCH (12:03)
[2018-06-28] MEDS: CARAFATE PO SCH ×3 (12:03→20:13)
[2018-06-28 12:08] LABS: PLATELET MORPHOLOGY COMMENT NORMAL (NORMAL)
[2018-06-28] MEDS: ZOFRAN INJ 4 MG VIAL IVP PRN (12:31)
[2018-06-28] MEDS: ZESTRIL TAB 10 MG PO SCH ×2 (12:31→20:14)
[2018-06-28] MEDS: CATAPRES TAB 0.1 MG PO PRN (12:31)
--- NOTE | 2018-06-28 15:10 | VAS ---
Bilateral upper extremity ultrasound Indication: Right upper extremity cellulitis with concern for DVT. Technique: Grayscale with color and spectral Doppler imaging of the right upper extremity was perform ed. Findings: The right upper extremity venous system demonstrated compression with augmentation and norm al spectral imaging. The venous system from the axillary to the ulnar vein was visualized. The right subclavian and jugular vein were free of thrombosis. There was questionable small nonocclusive clot w ithin the right basilic vein at the level of the elbow. Conclusion: 1. No evidence of right upper extremity DVT. 2. Small nonocclusive clot within the right basilic vein at the level of the elbow Reported By:
[2018-06-28] MEDS: TYLENOL 325 MG TAB PO PRN (16:57)
[2018-06-28] MEDS: ULTRAM PO PRN (20:13)
[2018-06-28] MEDS: ASPIRIN EC 81 MG PO SCH (20:14)
[2018-06-28] MEDS: AMBIEN PO PRN (20:55)
[2018-06-29] MEDS: ULTRAM PO PRN ×5 (00:15→21:18)
[2018-06-29] MEDS: ZOFRAN INJ 4 MG VIAL IVP PRN ×3 (00:35→21:20)
[2018-06-29] MEDS: CARAFATE PO SCH ×4 (05:32→21:18)
[2018-06-29 07:06] LABS: BASOPHILS % (AUTO) 0.5 % (0.2-1.0); EOSINOPHILS # (AUTO) 0.2 x10^3/uL (0.0-0.2); EOSINOPHILS % (AUTO) 2.3 % (0.9-2.9); HEMATOCRIT 26.7 % (36.0-47.0); HEMOGLOBIN 8.6 g/dL (12.0-16.0); LYMPHOCYTES % (AUTO) 14.5 % (21.0-51.0); MEAN CORPUSCULAR HEMOGLOBIN 25.1 pg (27.0-34.0); MEAN CORPUSCULAR VOLUME 78.4 fL (80.0-100.0); MEAN PLATELET VOLUME 8.2 fL (7.4-11.0); MONOCYTES # (AUTO) 0.7 x10^3/uL (0.3-0.8); NEUTROPHILS # (AUTO) 4.9 x10^3/uL (2.2-4.8); NEUTROPHILS % (AUTO) 72.7 % (42.0-75.0); PLATELET COUNT 195 X10^3/uL (150.0-450.0); RED CELL DISTRIBUTION WIDTH 17.8 % (11.6-16.5); WHITE BLOOD COUNT 6.7 X10^3/uL (3.6-10.0)
[2018-06-29 07:13] LABS: BILIRUBIN,URINE NEGATIVE (NEGATIVE); BLOOD/HEMOGLOBIN,URINE NEGATIVE (NEGATIVE); GLUCOSE, URINE NEGATIVE (NEGATIVE); KETONES,URINE NEGATIVE (NEGATIVE); LEUKOCYTE ESTERASE ,URINE 1+ (NEGATIVE); NITRITES,URINE NEGATIVE (NEGATIVE); PROTEIN,URINE 2+ (NEGATIVE); UROBILINOGEN,URINE NORMAL (NORMAL)
[2018-06-29 07:20] LABS: PLATELET MORPHOLOGY COMMENT NORMAL (NORMAL)
[2018-06-29 07:23] LABS: ALANINE AMINOTRANSFERASE 16 Units/L (12-78); ALBUMIN 2.9 g/dL (3.4-5.0); ALKALINE PHOSPHATASE 135 Units/L (46-116); ASPARTATE AMINO TRANSFERASE 16 Units/L (15-37); BLOOD UREA NITROGEN 18 mg/dL (7-18); CALCIUM 8.1 mg/dL (8.5-10.1); CARBON DIOXIDE 26.5 mmol/L (21-32); CHLORIDE 107 mmol/L (98-107); SODIUM 139 mmol/L (136-145); TOTAL PROTEIN 6.2 g/dL (6.4-8.2); eGFR NON BLACK RACES > 60 (>60)
[2018-06-29 07:36] LABS: APPEARANCE,URINE CLEAR (CLEAR); BACTERIA,URINE NEGATIVE /HPF (NEGATIVE); COLOR,URINE YELLOW (YELLOW); RBC,URINE 0-2 /HPF (NONE SEEN); SQUAMOUS EPITHELIAL CELL,UR FEW /HPF (NEGATIVE)
[2018-06-29] MEDS ORDERED: NS 100 ML IV + SPIKE MINIBAG* 100 ML IV ONE ×2 (08:24→20:24)
[2018-06-29] MEDS: TEFLARO IV SCH ×2 (08:53→21:18)
[2018-06-29] MEDS: PROTONIX INJ 40 MG VIAL IVP SCH (08:53)
[2018-06-29] MEDS: ASPIRIN EC 81 MG PO SCH (08:53)
[2018-06-29] MEDS: ZESTRIL TAB 10 MG PO SCH ×2 (08:53→21:18)
[2018-06-29] MEDS: PHENERGAN INJ 25 MG IVP PRN ×2 (09:39→22:15)
--- NOTE | 2018-06-29 10:59 | CT ---
Indication: Headaches Exam: CT head without contrast. Comparison: 03/03/2015 Findings: The ventricles are normal mildly enlarged there is mild prominence of the cortical sulci. T here is moderate periventricular low density bilaterally with small old lacunar infarcts in the coron a radiata on the right extending inferiorly which are unchanged. There is an old cortical infarct davon ng the right occipital lobe medially and inferiorly which is unchanged. The midline structures are un remarkable. The bones are intact. Impression: Mild atrophy and moderate chronic microischemic changes the deep white matter with no acute abnormali ty seen. 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 Reported By:
[2018-06-29] MEDS: TYLENOL 325 MG TAB PO PRN (12:14)
--- NOTE | 2018-06-29 17:53 | DR.H&P ---
H&P - History & Physical for Day of: H&P Date: 06/28/18 - Chief Complaint Chief Complaint: RUE PAIN REDNESS AND SWELLING TO OLD IV SITE, UPPER ABDOMNINAL PAIN AND NAUSEA "SICK ON STOMACH" - History of Present Illness History of Present Illness: 62 WF DIRECT ADMIT FROM DR JOE OFFICE WITH CELLULITIS TO RUE FOLLOWING IV SITE FROM HOSPITALIZATION LAST THURSDAY. PT STATES REDNESS, FEVER AND PAIN TO SITE X 2 DAYS AND FELT LOW GRADE FEVER. PT CO UPPER ABDOMINAL PAIN, NO APPETITE, N/V AND WEAKNESS. PT HAS PMH OF HTN, ANEMIA, AND GERD. PT ADMITTED FOR TREATMENT AND EVALUATION OF ACUTE ILLNESS - Past Medical History Past Medical History: Anemia, Arthritis, CVA, Depression, Dyslipidemia, Hypertension - Past Surgical History Surgical History: Appendectomy, Thyroidectomy, Tonsillectomy - Family History Family Medical History: Diabetes Mellitus, [place], Coronary Artery Disease, Hypertension - Social History Does patient currently use any type of tobacco product: No Have you used tobacco products in the last 12 months: No Alcohol Use: None Drug Use: None - Medications Home Medications: codeine Adverse Reaction (Verified 06/28/18 10:44) CONTINUE taking the following medications cyanocobalamin (vitamin B-12) 1 ml IM QWEEK 06/28/18 [History] ferrous sulfate 1 tab PO DAILY 06/28/18 [History] ondansetron 1 tab PO Q8H 06/28/18 [History] triamcinolone acetonide 0.1 % TOPICAL BID 06/28/18 [History] - Review of Systems Constitutional: Fever, Weakness Eyes: No Symptoms Reported ENT: No Symptoms Reported Respiratory: SOB with Excertion Cardiovascular: No Symptoms Reported, Edema Gastrointestinal: Nausea, Vomiting, Abdominal Pain Genitourinary: No Symptoms Reported Musculoskeletal: Arm Pain Skin: Rash Neurological: Weakness - Physical Exam Vital Signs: Temperature 98.5 F Pulse Rate [Left Brachial] 68 Respiratory Rate 20 Blood Pressure [Right Arm] 104/54 Blood Pressure [Left Arm] 156/99 Blood Pressure 156/99 O2 Sat by Pulse Oximetry 97 Oriented: Normal Eyes: Normal Ear: Normal Nose: Normal Throat: Normal Respiratory: RLL Diminished, LLL Diminished Cardiovascular: Normal, Edema : Normal Auscultation: Bowel Sounds: Normal Palpation: Normal Tenderness: RUQ, Epigastric Skin: Decreased Turgur, Rash, Red, Tender, Hot (RUE, AC AREA) Musculoskeletal: Right, Arm, Back:Lumbar Psychiatric: Depression Mood Description: Depressed Speech Pattern: Clear, Appropriate - Assessment/Plan (1) Right arm cellulitis Status: Acute Plan: ADMIT, US RUE ON ADMISSION. ASA, ADMISSION LABS. BP CONTROL, PPI THERAPY , NAUSEA MEDICATION. IV ATBX THERAPY, BLOOD CULTURES. VERIFY HOME MEDS. CT HEAD DUE TO WEAKNESS AND CONTINUED CO PALENCIA'S (2) Abdominal pain Status: Acute (3) Weakness Status: Acute (4) Hypertension Qualifiers: Hypertension type: essential hypertension Qualified Code(s): I10 - Essential (primary) hypertension Status: Chronic (5) Depression Status: Chronic (6) CAD (coronary artery disease) Status: Chronic (7) GERD (gastroesophageal reflux disease) Status: Chronic (8) Symptomatic anemia Status: Acute - Allergies Allergies/Adverse Reactions: Allergies Allergy/AdvReac Type Severity Reaction Status Date / Time codeine AdvReac Verified 06/28/18 10:44
--- NOTE | 2018-06-29 17:58 | PCM.PROG ---
Progress Note - Progress Note for Day of Date of Exam: 06/29/18 - Subjective Subjective: 62 WF ADMITTED ON 06/28 WITH RUE CELLULITIS AND ABDOMINAL PAIN. PT CURRENTLY ON IV ATBX FOR CELLULITIS WITH SLIGHT IMPROVEMENT IN REDNESS. PT CONTINUES TO CO NAUSEA FOOD INTOLERANCE AND UPPER ABDOMINAL PAIN. PLAN TO OBTAIN HIDA SCAN, PT RECENTLY HAD CT ABD AND PELVIS, CONTINUE CARAFATE AND NAUSEA CONTROL, BP CONTROL - Past Medical Family Social History Past Med/Fam/Surg Hx: No changes since H&P Allergies: Allergies codeine Adverse Reaction (Verified 06/28/18 10:44) - Review of Systems ROS: No change since H&P - Vital Signs and I&O's Vital Signs: Temperature 98.5 F Pulse Rate [Left Brachial] 68 Respiratory Rate 20 Blood Pressure [Right Arm] 104/54 Blood Pressure [Left Arm] 156/99 Blood Pressure 156/99 O2 Sat by Pulse Oximetry 97 Intake and Output: Intake & Output 06/27/18 06/28/18 06/29/18 06/30/18 11:59 11:59 11:59 11:59 Intake Total 1494 / 1494 400 / 400 Balance 1494 / 1494 400 / 400 - Physical Exam Oriented: Normal Eyes: Normal Ear: Normal Nose: Normal Throat: Normal Respiratory: Normal Cardiovascular: Normal, Edema : Normal Auscultation: Bowel Sounds: Normal Tenderness: RUQ, Epigastric Skin: Decreased Turgur, Rash, Red, Tender, Hot (RUE, AC AREA) Musculoskeletal: Right, Arm, Back:Lumbar Psychiatric: Depression Mood Description: Depressed Speech Pattern: Clear, Appropriate - Laboratory and Diagnostics Result Diagrams: 06/29/18 06:13 06/29/18 06:13 Labs: Laboratory WBC 6.7 X10^3/uL (3.6-10.0) 06/29/18 06:13 RBC 3.40 X10^6/uL (3.5-5.4) L 06/29/18 06:13 Hgb 8.6 g/dL (12.0-16.0) L 06/29/18 06:13 Hct 26.7 % (36.0-47.0) L 06/29/18 06:13 MCV 78.4 fL (80.0-100.0) L 06/29/18 06:13 MCH 25.1 pg (27.0-34.0) L 06/29/18 06:13 MCHC 32.0 g/dL (33.0-35.0) L 06/29/18 06:13 RDW 17.8 % (11.6-16.5) H 06/29/18 06:13 Plt Count 195 X10^3/uL (150.0-450.0) 06/29/18 06:13 Plt Count Comment Adequate (ADEQUATE) 06/29/18 06:13 MPV 8.2 fL (7.4-11.0) 06/29/18 06:13 Neut % (Auto) 72.7 % (42.0-75.0) 06/29/18 06:13 Lymph % (Auto) 14.5 % (21.0-51.0) L 06/29/18 06:13 [place] % (Auto) 10.0 % (0.0-13.0) 06/29/18 06:13 Eos % (Auto) 2.3 % (0.9-2.9) 06/29/18 06:13 Baso % (Auto) 0.5 % (0.2-1.0) 06/29/18 06:13 Neut # (Auto) 4.9 x10^3/uL (2.2-4.8) H 06/29/18 06:13 Lymph # (Auto) 1.0 X10^3/uL (1.3-2.9) L 06/29/18 06:13 [place] # (Auto) 0.7 x10^3/uL (0.3-0.8) 06/29/18 06:13 Eos # (Auto) 0.2 x10^3/uL (0.0-0.2) 06/29/18 06:13 Baso # (Auto) 0.0 X10^3/uL (0.0-0.1) 06/29/18 06:13 Absolute Nucleated RBC 0.1 /100WBC 06/29/18 06:13 Plt Morphology Comment Normal (NORMAL) 06/29/18 06:13 RBC Morphology Normal (NORMAL) 06/29/18 06:13 Sodium 139 mmol/L (136-145) 06/29/18 06:13 Corrected Sodium TNP 06/29/18 06:13 Potassium 3.9 mmol/L (3.5-5.1) 06/29/18 06:13 Chloride 107 mmol/L (98-107) 06/29/18 06:13 Carbon Dioxide 26.5 mmol/L (21-32) 06/29/18 06:13 BUN 18 mg/dL (7-18) 06/29/18 06:13 Creatinine 0.70 mg/dL (0.55-1.02) 06/29/18 06:13 Est GFR (MDRD) Af Amer > 60 (>60) 06/29/18 06:13 Est GFR (MDRD) Non-Af > 60 (>60) 06/29/18 06:13 Glucose 107 mg/dL (65-99) H 06/29/18 06:13 Calcium 8.1 mg/dL (8.5-10.1) L 06/29/18 06:13 Corrected Calcium 9.0 mg/dL (8.5-10.1) 06/29/18 06:13 Total Bilirubin 0.30 mg/dL (0.2-1.0) 06/29/18 06:13 AST 16 Units/L (15-37) 06/29/18 06:13 ALT 16 Units/L (12-78) 06/29/18 06:13 Alkaline Phosphatase 135 Units/L (46-116) H 06/29/18 06:13 Total Protein 6.2 g/dL (6.4-8.2) L 06/29/18 06:13 Albumin 2.9 g/dL (3.4-5.0) L 06/29/18 06:13 Globulin 3.3 g/dL (2.5-4.5) 06/29/18 06:13 Albumin/Globulin Ratio 0.9 Ratio (1.1-2.1) L 06/29/18 06:13 Specimen Type Clean catch urine 06/29/18 06:56 Urine Color Yellow (YELLOW) 06/29/18 06:56 Urine Appearance Clear (CLEAR) 06/29/18 06:56 Urine pH 6.0 (5.0 - 8.0) 06/29/18 06:56 Ur Specific [place] 1.025 (1.000-1.030) 06/29/18 06:56 Urine Protein 2+ (NEGATIVE) 08/14/18 06:56 Urine Glucose (UA) Negative (NEGATIVE) 06/29/18 06:56 Urine Ketones Negative (NEGATIVE) 06/29/18 06:56 Urine Occult Blood Negative (NEGATIVE) 06/29/18 06:56 Urine Nitrite Negative (NEGATIVE) 06/29/18 06:56 Urine Bilirubin Negative (NEGATIVE) 06/29/18 06:56 Urine Urobilinogen Normal (NORMAL) 06/29/18 06:56 Ur Leukocyte Esterase 1+ (NEGATIVE) 06/29/18 06:56 Urine RBC 0-2 /HPF (NONE SEEN) 06/29/18 06:56 Urine WBC 3-5 /HPF (NONE SEEN) 06/29/18 06:56 Ur Squamous Epith Cells Few /HPF (NEGATIVE) 06/29/18 06:56 Urine Bacteria Negative /HPF (NEGATIVE) 06/29/18 06:56 Ur Culture Indicated? No/not indicated 06/29/18 06:56 - Plan (1) Right arm cellulitis Status: Acute Plan: US RUE ON ADMISSION. ASA, AMLABS. BP CONTROL, PPI THERAPY, NAUSEA MEDICATION. IV ATBX THERAPY, BLOOD CULTURES. CT HEAD DUE TO WEAKNESS AND CONTINUED CO PALENCIA'S (2) Abdominal pain Status: Acute Plan: GALL BLADDER EVALUATION, PPI, NAUSEA CONTROL. HIDA SCAN (3) Weakness Status: Acute (4) Hypertension Status: Chronic Qualifiers: Hypertension type: essential hypertension Qualified Code(s): I10 - Essential (primary) hypertension (5) Depression Status: Chronic (6) CAD (coronary artery disease) Status: Chronic (7) GERD (gastroesophageal reflux disease) Status: Chronic (8) Symptomatic anemia Status: Acute
[2018-06-29] MEDS ORDERED: NS 500 ML IV 500 ML IV ONE (22:09)
[2018-06-30] MEDS: ULTRAM PO PRN ×4 (05:15→20:34)
[2018-06-30] MEDS: ZOFRAN INJ 4 MG VIAL IVP PRN ×2 (05:16→13:10)
[2018-06-30 05:48] LABS: BASOPHILS % (AUTO) 0.9 % (0.2-1.0); EOSINOPHILS # (AUTO) 0.2 x10^3/uL (0.0-0.2); EOSINOPHILS % (AUTO) 4.4 % (0.9-2.9); HEMATOCRIT 26.8 % (36.0-47.0); HEMOGLOBIN 8.6 g/dL (12.0-16.0); LYMPHOCYTES % (AUTO) 17.8 % (21.0-51.0); MEAN CORPUSCULAR HEMOGLOBIN 25.2 pg (27.0-34.0); MEAN CORPUSCULAR HGB CONC 32.1 g/dL (33.0-35.0); MEAN CORPUSCULAR VOLUME 78.6 fL (80.0-100.0); MEAN PLATELET VOLUME 8.3 fL (7.4-11.0); MONOCYTES # (AUTO) 0.5 x10^3/uL (0.3-0.8); MONOCYTES % (AUTO) 8.9 % (0.0-13.0); NEUTROPHILS # (AUTO) 3.8 x10^3/uL (2.2-4.8); PLATELET COUNT 196 X10^3/uL (150.0-450.0); RED CELL DISTRIBUTION WIDTH 18.2 % (11.6-16.5); WHITE BLOOD COUNT 5.7 X10^3/uL (3.6-10.0)
[2018-06-30] MEDS: CARAFATE PO SCH ×4 (05:48→20:34)
[2018-06-30 06:06] LABS: ALANINE AMINOTRANSFERASE 16 Units/L (12-78); ALBUMIN 2.8 g/dL (3.4-5.0); ALKALINE PHOSPHATASE 129 Units/L (46-116); ASPARTATE AMINO TRANSFERASE 13 Units/L (15-37); BLOOD UREA NITROGEN 19 mg/dL (7-18); CALCIUM 8.3 mg/dL (8.5-10.1); CHLORIDE 107 mmol/L (98-107); COR CA(FOR HYPOALB) 9.3 mg/dL (8.5-10.1); CREATININE 0.79 mg/dL (0.55-1.02); SODIUM 140 mmol/L (136-145); TOTAL PROTEIN 6.4 g/dL (6.4-8.2); eGFR NON BLACK RACES > 60 (>60)
[2018-06-30 06:08] LABS: HYPOCHROMASIA SLIGHT; PLATELET MORPHOLOGY COMMENT NORMAL (NORMAL)
[2018-06-30] MEDS ORDERED: NS 100 ML IV 100 ML IV ONE (09:20)
[2018-06-30] MEDS: ASPIRIN EC 81 MG PO SCH (09:36)
[2018-06-30] MEDS: ZESTRIL TAB 10 MG PO SCH ×2 (09:36→20:34)
[2018-06-30] MEDS: PROTONIX INJ 40 MG VIAL IVP SCH (09:36)
[2018-06-30] MEDS: TEFLARO IV SCH ×2 (09:36→20:34)
--- NOTE | 2018-06-30 13:40 | PCM.PROG ---
Progress Note - Progress Note for Day of Date of Exam: 06/30/18 - Subjective Subjective: 62 WF ADMITTED ON 06/28 WITH RUE CELLULITIS AND ABDOMINAL PAIN. PT CURRENTLY ON IV ATBX FOR CELLULITIS WITH SLIGHT IMPROVEMENT IN REDNESS. PT CONTINUES TO CO NAUSEA FOOD INTOLERANCE AND UPPER ABDOMINAL PAIN. PLAN TO OBTAIN HIDA SCAN THIS AM. PT IS NPO FOR HIDA THIS AM, CONTINUE CARAFATE AND NAUSEA CONTROL, BP CONTROL - Past Medical Family Social History Past Med/Fam/Surg Hx: No changes since H&P Allergies: Allergies codeine Adverse Reaction (Verified 06/28/18 10:44) - Review of Systems ROS: No change since H&P - Vital Signs and I&O's Vital Signs: Temperature 98.8 F Pulse Rate [Left Brachial] 70 Respiratory Rate 20 Blood Pressure [Right Arm] 146/68 Blood Pressure [Left Arm] 112/59 Blood Pressure 156/99 O2 Sat by Pulse Oximetry 96 Intake and Output: Intake & Output 06/28/18 06/29/18 06/30/18 07/01/18 11:59 11:59 11:59 11:59 Intake Total 1494 / 1494 970 / 970 Balance 1494 / 1494 970 / 970 - Physical Exam Oriented: Normal Eyes: Normal Ear: Normal Nose: Normal Throat: Normal Respiratory: Normal Cardiovascular: Normal, Edema : Normal Auscultation: Bowel Sounds: Normal Tenderness: RUQ, Epigastric Skin: Decreased Turgur, Rash, Red, Tender, Hot (RUE, AC AREA) Musculoskeletal: Right, Arm, Back:Lumbar Psychiatric: Depression Mood Description: Depressed Speech Pattern: Clear, Appropriate - Laboratory and Diagnostics Result Diagrams: 06/30/18 05:13 06/30/18 05:13 Labs: 06/28/18 11:14 Blood Blood Culture - Preliminary 06/28/18 11:06 Blood Blood Culture - Preliminary Laboratory WBC 5.7 X10^3/uL (3.6-10.0) 06/30/18 05:13 RBC 3.40 X10^6/uL (3.5-5.4) L 06/30/18 05:13 Hgb 8.6 g/dL (12.0-16.0) L 06/30/18 05:13 Hct 26.8 % (36.0-47.0) L 06/30/18 05:13 MCV 78.6 fL (80.0-100.0) L 06/30/18 05:13 MCH 25.2 pg (27.0-34.0) L 06/30/18 05:13 MCHC 32.1 g/dL (33.0-35.0) L 06/30/18 05:13 RDW 18.2 % (11.6-16.5) H 06/30/18 05:13 Plt Count 196 X10^3/uL (150.0-450.0) 06/30/18 05:13 Plt Count Comment Adequate (ADEQUATE) 06/30/18 05:13 MPV 8.3 fL (7.4-11.0) 06/30/18 05:13 Neut % (Auto) 68.0 % (42.0-75.0) 06/30/18 05:13 Lymph % (Auto) 17.8 % (21.0-51.0) L 06/30/18 05:13 [place] % (Auto) 8.9 % (0.0-13.0) 06/30/18 05:13 Eos % (Auto) 4.4 % (0.9-2.9) H 06/30/18 05:13 Baso % (Auto) 0.9 % (0.2-1.0) 06/30/18 05:13 Neut # (Auto) 3.8 x10^3/uL (2.2-4.8) 06/30/18 05:13 Lymph # (Auto) 1.0 X10^3/uL (1.3-2.9) L 06/30/18 05:13 [place] # (Auto) 0.5 x10^3/uL (0.3-0.8) 06/30/18 05:13 Eos # (Auto) 0.2 x10^3/uL (0.0-0.2) 06/30/18 05:13 Baso # (Auto) 0.0 X10^3/uL (0.0-0.1) 06/30/18 05:13 Absolute Nucleated RBC 0.0 /100WBC 06/30/18 05:13 Plt Morphology Comment Normal (NORMAL) 06/30/18 05:13 RBC Morphology Abnormal (NORMAL) A 06/30/18 05:13 Hypochromasia Slight A 06/30/18 05:13 Sodium 140 mmol/L (136-145) 06/30/18 05:13 Corrected Sodium TNP 06/30/18 05:13 Potassium 4.4 mmol/L (3.5-5.1) 06/30/18 05:13 Chloride 107 mmol/L (98-107) 06/30/18 05:13 Carbon Dioxide 27.0 mmol/L (21-32) 06/30/18 05:13 BUN 19 mg/dL (7-18) H 06/30/18 05:13 Creatinine 0.79 mg/dL (0.55-1.02) 06/30/18 05:13 Est GFR (MDRD) Af Amer > 60 (>60) 06/30/18 05:13 Est GFR (MDRD) Non-Af > 60 (>60) 06/30/18 05:13 Glucose 96 mg/dL (65-99) 06/30/18 05:13 Calcium 8.3 mg/dL (8.5-10.1) L 06/30/18 05:13 Corrected Calcium 9.3 mg/dL (8.5-10.1) 06/30/18 05:13 Total Bilirubin 0.20 mg/dL (0.2-1.0) 06/30/18 05:13 AST 13 Units/L (15-37) L 06/30/18 05:13 ALT 16 Units/L (12-78) 06/30/18 05:13 Alkaline Phosphatase 129 Units/L (46-116) H 06/30/18 05:13 Total Protein 6.4 g/dL (6.4-8.2) 06/30/18 05:13 Albumin 2.8 g/dL (3.4-5.0) L 06/30/18 05:13 Globulin 3.6 g/dL (2.5-4.5) 06/30/18 05:13 Albumin/Globulin Ratio 0.8 Ratio (1.1-2.1) L 06/30/18 05:13 Specimen Type Clean catch urine 06/29/18 06:56 Urine Color Yellow (YELLOW) 06/29/18 06:56 Urine Appearance Clear (CLEAR) 06/29/18 06:56 Urine pH 6.0 (5.0 - 8.0) 06/29/18 06:56 Ur Specific [place] 1.025 (1.000-1.030) 06/29/18 06:56 Urine Protein 2+ (NEGATIVE) 06/29/18 06:56 Urine Glucose (UA) Negative (NEGATIVE) 06/29/18 06:56 Urine Ketones Negative (NEGATIVE) 06/29/18 06:56 Urine Occult Blood Negative (NEGATIVE) 06/29/18 06:56 Urine Nitrite Negative (NEGATIVE) 06/29/18 06:56 Urine Bilirubin Negative (NEGATIVE) 06/29/18 06:56 Urine Urobilinogen Normal (NORMAL) 06/29/18 06:56 Ur Leukocyte Esterase 1+ (NEGATIVE) 06/29/18 06:56 Urine RBC 0-2 /HPF (NONE SEEN) 06/29/18 06:56 Urine WBC 3-5 /HPF (NONE SEEN) 06/29/18 06:56 Ur Squamous Epith Cells Few /HPF (NEGATIVE) 06/29/18 06:56 Urine Bacteria Negative /HPF (NEGATIVE) 06/29/18 06:56 Ur Culture Indicated? No/not indicated 06/29/18 06:56 - Plan (1) Right arm cellulitis Status: Acute Plan: US RUE ON ADMISSION. ASA, AM LABS. BP CONTROL, PPI THERAPY, NAUSEA MEDICATION. IV ATBX THERAPY, BLOOD CULTURES. CT HEAD DUE TO WEAKNESS AND CONTINUED CO PALENCIA'S (2) Abdominal pain Status: Acute Plan: GALL BLADDER EVALUATION, PPI, NAUSEA CONTROL. HIDA SCAN TODAY, NPO FOR PROCEDURE (3) Weakness Status: Acute (4) Hypertension Status: Chronic Qualifiers: Hypertension type: essential hypertension Qualified Code(s): I10 - Essential (primary) hypertension (5) Depression Status: Chronic (6) CAD (coronary artery disease) Status: Chronic (7) GERD (gastroesophageal reflux disease) Status: Chronic (8) Symptomatic anemia Status: Acute
--- NOTE | 2018-06-30 15:46 | NM ---
HISTORY: 62-year-old female with abdominal pain, nausea vomiting. Study: Nuclear medicine HIDA scan with ejection fraction Comparison: Ultrasound of gallbladder 06/29/2018. Technique: Multiple scintigraphic images of the abdomen were obtained the intravenous administration of 5.6 mCi of technetium labeled Choletec. Following distention of the gallbladder with radiotracer a fatty meal consisting of 8 oz ensure was g iven orally. An estimated gallbladder ejection fraction was calculated based on the physiologic resp onse to fatty meal. Findings: Homogeneous uptake of radiotracer is seen throughout the liver. The intrabiliary ductal system is ob served normally. The common hepatic and common bile duct grossly appear unremarkable with normal shashank iary-bowel transit. The gallbladder is observed to fill normally. After the IV administration of Kinevac, a normal gallbladder ejection fraction of 23% (normal > 35%) is observed. IMPRESSION: 1. Normal hepatobiliary imaging scan. 2. Low gallbladder ejection fraction of 23%, biliary dyskinesia most likely given normal ultrasound of the gallbladder performed 06/29/2018. Consider surgical consultation. Reported By:
[2018-06-30] MEDS ORDERED: NS 500 ML IV 500 ML IV ONE (19:29)
[2018-06-30] MEDS ORDERED: NS 100 ML IV + SPIKE MINIBAG* 100 ML IV ONE (19:30)
[2018-06-30] MEDS: AMBIEN PO PRN (21:00)
[2018-07-01] MEDS: CARAFATE PO SCH ×4 (05:55→20:21)
[2018-07-01] MEDS: ZOFRAN INJ 4 MG VIAL IVP PRN ×2 (05:56→17:45)
[2018-07-01] MEDS: ULTRAM PO PRN ×4 (05:56→20:22)
[2018-07-01 06:10] LABS: BASOPHILS # (AUTO) 0.1 X10^3/uL (0.0-0.1); BASOPHILS % (AUTO) 1.3 % (0.2-1.0); EOSINOPHILS # (AUTO) 0.2 x10^3/uL (0.0-0.2); EOSINOPHILS % (AUTO) 5.6 % (0.9-2.9); HEMATOCRIT 24.4 % (36.0-47.0); HEMOGLOBIN 7.9 g/dL (12.0-16.0); LYMPHOCYTES # (AUTO) 1.3 X10^3/uL (1.3-2.9); LYMPHOCYTES % (AUTO) 29.4 % (21.0-51.0); MEAN CORPUSCULAR HEMOGLOBIN 25.4 pg (27.0-34.0); MEAN CORPUSCULAR HGB CONC 32.3 g/dL (33.0-35.0); MEAN CORPUSCULAR VOLUME 78.5 fL (80.0-100.0); MONOCYTES # (AUTO) 0.4 x10^3/uL (0.3-0.8); MONOCYTES % (AUTO) 8.9 % (0.0-13.0); NEUTROPHILS # (AUTO) 2.3 x10^3/uL (2.2-4.8); NEUTROPHILS % (AUTO) 54.8 % (42.0-75.0); PLATELET COUNT 158 X10^3/uL (150.0-450.0); RED BLOOD COUNT 3.11 X10^6/uL (3.5-5.4); RED CELL DISTRIBUTION WIDTH 18.3 % (11.6-16.5); WHITE BLOOD COUNT 4.3 X10^3/uL (3.6-10.0)
[2018-07-01 06:42] LABS: ALANINE AMINOTRANSFERASE 16 Units/L (12-78); ALBUMIN 2.7 g/dL (3.4-5.0); ALKALINE PHOSPHATASE 118 Units/L (46-116); ASPARTATE AMINO TRANSFERASE 16 Units/L (15-37); BLOOD UREA NITROGEN 16 mg/dL (7-18); CALCIUM 8.1 mg/dL (8.5-10.1); CARBON DIOXIDE 25.9 mmol/L (21-32); CHLORIDE 106 mmol/L (98-107); COR CA(FOR HYPOALB) 9.1 mg/dL (8.5-10.1); CREATININE 0.78 mg/dL (0.55-1.02); SODIUM 139 mmol/L (136-145); eGFR NON BLACK RACES > 60 (>60)
[2018-07-01 06:57] LABS: PLATELET MORPHOLOGY COMMENT NORMAL (NORMAL)
[2018-07-01 06:58] LABS: HYPOCHROMASIA SLIGHT
[2018-07-01] MEDS ORDERED: NS 100 ML IV + SPIKE MINIBAG* 100 ML IV ONE ×2 (07:56→19:53)
[2018-07-01] MEDS: PROTONIX INJ 40 MG VIAL IVP SCH (08:31)
[2018-07-01] MEDS: ZESTRIL TAB 10 MG PO SCH ×2 (08:31→20:21)
[2018-07-01] MEDS: ASPIRIN EC 81 MG PO SCH (08:31)
[2018-07-01] MEDS: TEFLARO IV SCH ×2 (08:31→21:40)
[2018-07-01] MEDS: PHENERGAN INJ 25 MG IVP PRN (10:21)
[2018-07-01] MEDS ORDERED: NS 500 ML IV 500 ML IV ONE ×2 (12:49→14:02)
[2018-07-01 17:49] LABS: HEMATOCRIT 27.6 % (36.0-47.0); HEMOGLOBIN 8.9 g/dL (12.0-16.0)
[2018-07-01] MEDS: AMBIEN PO PRN (20:22)
[2018-07-02 05:24] LABS: BASOPHILS % (AUTO) 1.1 % (0.2-1.0); EOSINOPHILS # (AUTO) 0.2 x10^3/uL (0.0-0.2); EOSINOPHILS % (AUTO) 4.3 % (0.9-2.9); HEMOGLOBIN 8.9 g/dL (12.0-16.0); LYMPHOCYTES # (AUTO) 1.3 X10^3/uL (1.3-2.9); LYMPHOCYTES % (AUTO) 28.7 % (21.0-51.0); MEAN CORPUSCULAR HGB CONC 31.8 g/dL (33.0-35.0); MEAN CORPUSCULAR VOLUME 78.7 fL (80.0-100.0); MEAN PLATELET VOLUME 8.9 fL (7.4-11.0); MONOCYTES # (AUTO) 0.5 x10^3/uL (0.3-0.8); MONOCYTES % (AUTO) 10.7 % (0.0-13.0); NEUTROPHILS # (AUTO) 2.5 x10^3/uL (2.2-4.8); NEUTROPHILS % (AUTO) 55.2 % (42.0-75.0); PLATELET COUNT 176 X10^3/uL (150.0-450.0); RED BLOOD COUNT 3.56 X10^6/uL (3.5-5.4); RED CELL DISTRIBUTION WIDTH 18.1 % (11.6-16.5); WHITE BLOOD COUNT 4.5 X10^3/uL (3.6-10.0)
[2018-07-02] MEDS ORDERED: NS 500 ML IV 500 ML IV ONE (05:49)
[2018-07-02 05:52] LABS: ALANINE AMINOTRANSFERASE 21 Units/L (12-78); ALBUMIN 2.8 g/dL (3.4-5.0); ALKALINE PHOSPHATASE 124 Units/L (46-116); ASPARTATE AMINO TRANSFERASE 23 Units/L (15-37); BLOOD UREA NITROGEN 15 mg/dL (7-18); CALCIUM 8.3 mg/dL (8.5-10.1); CARBON DIOXIDE 27.2 mmol/L (21-32); CHLORIDE 107 mmol/L (98-107); COR CA(FOR HYPOALB) 9.3 mg/dL (8.5-10.1); SODIUM 140 mmol/L (136-145); TOTAL PROTEIN 6.2 g/dL (6.4-8.2); eGFR NON BLACK RACES > 60 (>60)
[2018-07-02 06:06] LABS: HYPOCHROMASIA SLIGHT; PLATELET MORPHOLOGY COMMENT NORMAL (NORMAL)
[2018-07-02] MEDS: CARAFATE PO SCH ×4 (06:30→20:42)
[2018-07-02] MEDS ORDERED: NS 100 ML IV + SPIKE MINIBAG* 100 ML IV ONE ×2 (08:19→20:25)
[2018-07-02] MEDS: ASPIRIN EC 81 MG PO SCH (08:42)
[2018-07-02] MEDS: TEFLARO IV SCH ×2 (08:42→20:42)
[2018-07-02] MEDS: ZESTRIL TAB 10 MG PO SCH ×2 (08:43→20:44)
[2018-07-02] MEDS: PROTONIX INJ 40 MG VIAL IVP SCH (08:43)
[2018-07-02] MEDS: ULTRAM PO PRN ×2 (13:28→19:31)
--- NOTE | 2018-07-02 15:52 | PCM.PROG ---
Progress Note - Progress Note for Day of Date of Exam: 07/02/18 - Subjective Subjective: 62 WF ADMITTED ON 06/28 WITH RUE CELLULITIS AND ABDOMINAL PAIN. PT CURRENTLY ON IV ATBX FOR CELLULITIS WITH SLIGHT IMPROVEMENT IN REDNESS, CONTINUED PAIN TO SITE. PT CONTINUES TO CO NAUSEA FOOD INTOLERANCE AND UPPER ABDOMINAL PAIN. PLAN TO OBTAIN HIDA SCAN WITH ABNORMAL EF. WE REVIEWED FINDINGS WITH PT SHE WILL NEED CARDIAC CLEARANCE DUE TO HX OF CAD. PLAN TO CONTINUE CARAFATE AND NAUSEA CONTROL, BP CONTROL. PT CONTINES TO CO WEAKNESS AND FATIGUE , CASE MANAGEMENT CONSULT FOR POSSIBLE REHAB PLACEMENT FOR PHYSICAL THERAPY - Past Medical Family Social History Past Med/Fam/Surg Hx: No changes since H&P Allergies: Allergies codeine Adverse Reaction (Verified 06/28/18 10:44) - Review of Systems ROS: No change since H&P - Vital Signs and I&O's Vital Signs: Temperature 98.4 F Pulse Rate [Left Brachial] 56 Respiratory Rate 18 Blood Pressure [Right Arm] 158/81 Blood Pressure [Left Arm] 185/84 Blood Pressure 156/99 O2 Sat by Pulse Oximetry 96 Intake and Output: Intake & Output 06/30/18 07/01/18 07/02/18 07/03/18 11:59 11:59 11:59 11:59 Intake Total 970 / 970 743 / 743 2033 / 2033 100 / 100 Balance 970 / 970 743 / 743 2033 / 2033 100 / 100 - Physical Exam Oriented: Normal Eyes: Normal Ear: Normal Nose: Normal Throat: Normal Respiratory: Normal Cardiovascular: Normal, Edema : Normal Auscultation: Bowel Sounds: Normal Tenderness: RUQ, Epigastric Skin: Decreased Turgur, Rash, Red, Tender, Hot (RUE, AC AREA) Musculoskeletal: Right, Arm, Back:Lumbar Psychiatric: Depression Mood Description: Depressed Speech Pattern: Clear, Appropriate - Laboratory and Diagnostics Result Diagrams: 07/02/18 04:48 07/02/18 04:48 Labs: 06/28/18 11:14 Blood Blood Culture - Preliminary 06/28/18 11:06 Blood Blood Culture - Preliminary Laboratory WBC 4.5 X10^3/uL (3.6-10.0) 07/02/18 04:48 RBC 3.56 X10^6/uL (3.5-5.4) 07/02/18 04:48 Hgb 8.9 g/dL (12.0-16.0) L 07/02/18 04:48 Hct 28.0 % (36.0-47.0) L 07/02/18 04:48 MCV 78.7 fL (80.0-100.0) L 07/02/18 04:48 MCH 25.0 pg (27.0-34.0) L 07/02/18 04:48 MCHC 31.8 g/dL (33.0-35.0) L 07/02/18 04:48 RDW 18.1 % (11.6-16.5) H 07/02/18 04:48 Plt Count 176 X10^3/uL (150.0-450.0) 07/02/18 04:48 Plt Count Comment Adequate (ADEQUATE) 07/02/18 04:48 MPV 8.9 fL (7.4-11.0) 07/02/18 04:48 Neut % (Auto) 55.2 % (42.0-75.0) 07/02/18 04:48 Lymph % (Auto) 28.7 % (21.0-51.0) 07/02/18 04:48 [place] % (Auto) 10.7 % (0.0-13.0) 07/02/18 04:48 Eos % (Auto) 4.3 % (0.9-2.9) H 07/02/18 04:48 Baso % (Auto) 1.1 % (0.2-1.0) H 07/02/18 04:48 Neut # (Auto) 2.5 x10^3/uL (2.2-4.8) 07/02/18 04:48 Lymph # (Auto) 1.3 X10^3/uL (1.3-2.9) 07/02/18 04:48 [place] # (Auto) 0.5 x10^3/uL (0.3-0.8) 07/02/18 04:48 Eos # (Auto) 0.2 x10^3/uL (0.0-0.2) 07/02/18 04:48 Baso # (Auto) 0.0 X10^3/uL (0.0-0.1) 07/02/18 04:48 Absolute Nucleated RBC 0.1 /100WBC 07/02/18 04:48 Plt Morphology Comment Normal (NORMAL) 07/02/18 04:48 RBC Morphology Abnormal (NORMAL) A 07/02/18 04:48 Hypochromasia Slight A 07/02/18 04:48 Sodium 140 mmol/L (136-145) 07/02/18 04:48 Corrected Sodium TNP 07/02/18 04:48 Potassium 4.1 mmol/L (3.5-5.1) 07/02/18 04:48 Chloride 107 mmol/L (98-107) 07/02/18 04:48 Carbon Dioxide 27.2 mmol/L (21-32) 07/02/18 04:48 BUN 15 mg/dL (7-18) 07/02/18 04:48 Creatinine 0.80 mg/dL (0.55-1.02) 07/02/18 04:48 Est GFR (MDRD) Af Amer > 60 (>60) 07/02/18 04:48 Est GFR (MDRD) Non-Af > 60 (>60) 07/02/18 04:48 Glucose 95 mg/dL (65-99) 07/02/18 04:48 Calcium 8.3 mg/dL (8.5-10.1) L 07/02/18 04:48 Corrected Calcium 9.3 mg/dL (8.5-10.1) 07/02/18 04:48 Total Bilirubin 0.20 mg/dL (0.2-1.0) 07/02/18 04:48 AST 23 Units/L (15-37) 07/02/18 04:48 ALT 21 Units/L (12-78) 07/02/18 04:48 Alkaline Phosphatase 124 Units/L (46-116) H 07/02/18 04:48 Total Protein 6.2 g/dL (6.4-8.2) L 07/02/18 04:48 Albumin 2.8 g/dL (3.4-5.0) L 07/02/18 04:48 Globulin 3.4 g/dL (2.5-4.5) 07/02/18 04:48 Albumin/Globulin Ratio 0.8 Ratio (1.1-2.1) L 07/02/18 04:48 Specimen Type Clean catch urine 06/29/18 06:56 Urine Color Yellow (YELLOW) 06/29/18 06:56 Urine Appearance Clear (CLEAR) 06/29/18 06:56 Urine pH 6.0 (5.0 - 8.0) 06/29/18 06:56 Ur Specific [place] 1.025 (1.000-1.030) 06/29/18 06:56 Urine Protein 2+ (NEGATIVE) 06/29/18 06:56 Urine Glucose (UA) Negative (NEGATIVE) 06/29/18 06:56 Urine Ketones Negative (NEGATIVE) 06/29/18 06:56 Urine Occult Blood Negative (NEGATIVE) 06/29/18 06:56 Urine Nitrite Negative (NEGATIVE) 06/29/18 06:56 Urine Bilirubin Negative (NEGATIVE) 06/29/18 06:56 Urine Urobilinogen Normal (NORMAL) 06/29/18 06:56 Ur Leukocyte Esterase 1+ (NEGATIVE) 06/29/18 06:56 Urine RBC 0-2 /HPF (NONE SEEN) 06/29/18 06:56 Urine WBC 3-5 /HPF (NONE SEEN) 06/29/18 06:56 Ur Squamous Epith Cells Few /HPF (NEGATIVE) 06/29/18 06:56 Urine Bacteria Negative /HPF (NEGATIVE) 06/29/18 06:56 Ur Culture Indicated? No/not indicated 06/29/18 06:56 Blood Type O POSITIVE 07/01/18 10:35 Antibody Screen Negative 07/01/18 10:35 Crossmatch See Detail 07/01/18 10:35 - Plan (1) Right arm cellulitis Status: Acute Plan: US RUE ON ADMISSION. ASA, AM LABS. BP CONTROL, PPI THERAPY, NAUSEA MEDICATION. IV ATBX THERAPY, BLOOD CULTURES. CT HEAD DUE TO WEAKNESS AND CONTINUED CO PALENCIA'S (2) Abdominal pain Status: Acute Plan: GALL BLADDER EVALUATION, PPI, NAUSEA CONTROL. HIDA SCAN WITH ABNORMAL EF (3) Weakness Status: Acute (4) Hypertension Status: Chronic Qualifiers: Hypertension type: essential hypertension Qualified Code(s): I10 - Essential (primary) hypertension (5) Depression Status: Chronic (6) CAD (coronary artery disease) Status: Chronic (7) GERD (gastroesophageal reflux disease) Status: Chronic (8) Symptomatic anemia Status: Acute (9) History of CVA (cerebrovascular accident) Status: Acute Plan: BP AND LIPID CONTROL. ASPIRIN THERAPY SUPPORTIVE CARE
[2018-07-02] MEDS: HEMOCYTE-PLUS PO SCH (16:28)
[2018-07-02] MEDS: CATAPRES TAB 0.1 MG PO PRN (19:32)
[2018-07-03] MEDS: CARAFATE PO SCH ×4 (05:38→20:30)
[2018-07-03] MEDS ORDERED: NS 100 ML IV + SPIKE MINIBAG* 100 ML IV ONE ×2 (07:40→20:09)
[2018-07-03] MEDS: ULTRAM PO PRN ×2 (08:10→20:29)
[2018-07-03] MEDS: ZOFRAN INJ 4 MG VIAL IVP PRN (08:11)
[2018-07-03] MEDS: PROTONIX INJ 40 MG VIAL IVP SCH (08:59)
[2018-07-03] MEDS: ASPIRIN EC 81 MG PO SCH (08:59)
[2018-07-03] MEDS: HEMOCYTE-PLUS PO SCH (08:59)
[2018-07-03] MEDS: TEFLARO IV SCH ×2 (08:59→20:29)
[2018-07-03] MEDS: ZESTRIL TAB 10 MG PO SCH ×2 (09:00→20:30)
[2018-07-03] MEDS ORDERED: PLAVIX ONE (09:10)
--- NOTE | 2018-07-03 11:56 | PCM.PROG ---
Progress Note - Progress Note for Day of Date of Exam: 07/03/18 - Subjective Subjective: 62 WF ADMITTED ON 06/28 WITH RUE CELLULITIS AND ABDOMINAL PAIN. PT CURRENTLY ON IV ATBX FOR CELLULITIS WITH SLIGHT IMPROVEMENT IN REDNESS, CONTINUED PAIN TO SITE. PT CONTINUES TO CO NAUSEA FOOD INTOLERANCE AND UPPER ABDOMINAL PAIN. PLAN TO OBTAIN HIDA SCAN WITH ABNORMAL EF. WE REVIEWED FINDINGS WITH PT SHE WILL NEED CARDIAC CLEARANCE DUE TO HX OF CAD. PLAN TO CONTINUE CARAFATE AND NAUSEA CONTROL, BP CONTROL. PT CONTINES TO CO WEAKNESS AND FATIGUE , CASE MANAGEMENT CONSULT FOR POSSIBLE REHAB PLACEMENT FOR PHYSICAL THERAPY, FAMILY UNABLE TO CARE FOR HER AT HOME AT THIS TIME. PT IS FALL RISK, PT ALSO HAS HISTORY OF PSYCHIATRIC ILLNESS WITH THREATS OF SELF HARM IN THE PAST REQUIRING INPT MENTAL HEALTH TREATMENT. - Past Medical Family Social History Past Med/Fam/Surg Hx: No changes since H&P Allergies: Allergies codeine Adverse Reaction (Verified 06/28/18 10:44) - Review of Systems ROS: No change since H&P - Vital Signs and I&O's Vital Signs: Temperature 97.5 F Pulse Rate [Left Brachial] 50 Respiratory Rate 18 Blood Pressure [Right Arm] 197/92 Blood Pressure [Left Arm] 145/73 Blood Pressure 156/99 O2 Sat by Pulse Oximetry 98 Intake and Output: Intake & Output 06/30/18 07/01/18 07/02/18 07/03/18 11:59 11:59 11:59 11:59 Intake Total 970 / 970 743 / 743 2033 / 4 1650 / 1650 Balance 970 / 970 743 / 743 2033 / 2033 1650 / 1650 - Physical Exam Oriented: Normal Eyes: Normal Ear: Normal Nose: Normal Throat: Normal Respiratory: Normal Cardiovascular: Normal, Edema : Normal Auscultation: Bowel Sounds: Normal Tenderness: RUQ, Epigastric Skin: Decreased Turgur, Rash, Red, Tender, Hot (RUE, AC AREA) Musculoskeletal: Right, Arm, Back:Lumbar Psychiatric: Depression Mood Description: Depressed Speech Pattern: Clear, Appropriate - Laboratory and Diagnostics Result Diagrams: 07/02/18 04:48 07/02/18 04:48 Labs: 06/28/18 11:14 Blood Blood Culture - Preliminary 06/28/18 11:06 Blood Blood Culture - Preliminary Laboratory WBC 4.5 X10^3/uL (3.6-10.0) 07/02/18 04:48 RBC 3.56 X10^6/uL (3.5-5.4) 07/02/18 04:48 Hgb 8.9 g/dL (12.0-16.0) L 07/02/18 04:48 Hct 28.0 % (36.0-47.0) L 07/02/18 04:48 MCV 78.7 fL (80.0-100.0) L 07/02/18 04:48 MCH 25.0 pg (27.0-34.0) L 07/02/18 04:48 MCHC 31.8 g/dL (33.0-35.0) L 07/02/18 04:48 RDW 18.1 % (11.6-16.5) H 07/02/18 04:48 Plt Count 176 X10^3/uL (150.0-450.0) 07/02/18 04:48 Plt Count Comment Adequate (ADEQUATE) 07/02/18 04:48 MPV 8.9 fL (7.4-11.0) 07/02/18 04:48 Neut % (Auto) 55.2 % (42.0-75.0) 07/02/18 04:48 Lymph % (Auto) 28.7 % (21.0-51.0) 07/02/18 04:48 [place] % (Auto) 10.7 % (0.0-13.0) 07/02/18 04:48 Eos % (Auto) 4.3 % (0.9-2.9) H 07/02/18 04:48 Baso % (Auto) 1.1 % (0.2-1.0) H 07/02/18 04:48 Neut # (Auto) 2.5 x10^3/uL (2.2-4.8) 07/02/18 04:48 Lymph # (Auto) 1.3 X10^3/uL (1.3-2.9) 07/02/18 04:48 [place] # (Auto) 0.5 x10^3/uL (0.3-0.8) 07/02/18 04:48 Eos # (Auto) 0.2 x10^3/uL (0.0-0.2) 07/02/18 04:48 Baso # (Auto) 0.0 X10^3/uL (0.0-0.1) 07/02/18 04:48 Absolute Nucleated RBC 0.1 /100WBC 07/02/18 04:48 Plt Morphology Comment Normal (NORMAL) 07/02/18 04:48 RBC Morphology Abnormal (NORMAL) A 07/02/18 04:48 Hypochromasia Slight A 07/02/18 04:48 Sodium 140 mmol/L (136-145) 07/02/18 04:48 Corrected Sodium TNP 07/02/18 04:48 Potassium 4.1 mmol/L (3.5-5.1) 07/02/18 04:48 Chloride 107 mmol/L (98-107) 07/02/18 04:48 Carbon Dioxide 27.2 mmol/L (21-32) 07/02/18 04:48 BUN 15 mg/dL (7-18) 07/02/18 04:48 Creatinine 0.80 mg/dL (0.55-1.02) 07/02/18 04:48 Est GFR (MDRD) Af Amer > 60 (>60) 07/02/18 04:48 Est GFR (MDRD) Non-Af > 60 (>60) 07/02/18 04:48 Glucose 95 mg/dL (65-99) 07/02/18 04:48 Calcium 8.3 mg/dL (8.5-10.1) L 07/02/18 04:48 Corrected Calcium 9.3 mg/dL (8.5-10.1) 07/02/18 04:48 Total Bilirubin 0.20 mg/dL (0.2-1.0) 07/02/18 04:48 AST 23 Units/L (15-37) 07/02/18 04:48 ALT 21 Units/L (12-78) 07/02/18 04:48 Alkaline Phosphatase 124 Units/L (46-116) H 07/02/18 04:48 Total Protein 6.2 g/dL (6.4-8.2) L 07/02/18 04:48 Albumin 2.8 g/dL (3.4-5.0) L 07/02/18 04:48 Globulin 3.4 g/dL (2.5-4.5) 07/02/18 04:48 Albumin/Globulin Ratio 0.8 Ratio (1.1-2.1) L 07/02/18 04:48 Specimen Type Clean catch urine 06/29/18 06:56 Urine Color Yellow (YELLOW) 06/29/18 06:56 Urine Appearance Clear (CLEAR) 06/29/18 06:56 Urine pH 6.0 (5.0 - 8.0) 06/29/18 06:56 Ur Specific [place] 1.025 (1.000-1.030) 06/29/18 06:56 Urine Protein 2+ (NEGATIVE) 06/29/18 06:56 Urine Glucose (UA) Negative (NEGATIVE) 06/29/18 06:56 Urine Ketones Negative (NEGATIVE) 06/29/18 06:56 Urine Occult Blood Negative (NEGATIVE) 06/29/18 06:56 Urine Nitrite Negative (NEGATIVE) 06/29/18 06:56 Urine Bilirubin Negative (NEGATIVE) 06/29/18 06:56 Urine Urobilinogen Normal (NORMAL) 06/29/18 06:56 Ur Leukocyte Esterase 1+ (NEGATIVE) 06/29/18 06:56 Urine RBC 0-2 /HPF (NONE SEEN) 06/29/18 06:56 Urine WBC 3-5 /HPF (NONE SEEN) 06/29/18 06:56 Ur Squamous Epith Cells Few /HPF (NEGATIVE) 06/29/18 06:56 Urine Bacteria Negative /HPF (NEGATIVE) 06/29/18 06:56 Ur Culture Indicated? No/not indicated 06/29/18 06:56 Blood Type O POSITIVE 07/01/18 10:35 Antibody Screen Negative 07/01/18 10:35 Crossmatch See Detail 07/01/18 10:35 - Plan (1) Right arm cellulitis Status: Acute Plan: US RUE ON ADMISSION. ASA, AM LABS. BP CONTROL, PPI THERAPY, NAUSEA MEDICATION. IV ATBX THERAPY, BLOOD CULTURES. CT HEAD DUE TO WEAKNESS AND CONTINUED CO PALENCIA'S (2) Abdominal pain Status: Acute Plan: GALL BLADDER EVALUATION, PPI, NAUSEA CONTROL. HIDA SCAN WITH ABNORMAL EF (3) Weakness Status: Acute (4) Hypertension Status: Chronic Qualifiers: Hypertension type: essential hypertension Qualified Code(s): I10 - Essential (primary) hypertension (5) Depression Status: Chronic Qualifiers: Depression Type: major depressive disorder (6) CAD (coronary artery disease) Status: Chronic (7) GERD (gastroesophageal reflux disease) Status: Chronic (8) Symptomatic anemia Status: Acute (9) History of CVA (cerebrovascular accident) Status: Acute Plan: BP AND LIPID CONTROL. ASPIRIN THERAPY SUPPORTIVE CARE
[2018-07-03] MEDS: CATAPRES TAB 0.1 MG PO PRN (12:45)
[2018-07-03] MEDS: PHENERGAN INJ 25 MG IVP PRN (12:46)
[2018-07-04] MEDS: CARAFATE PO SCH ×4 (05:41→20:11)
[2018-07-04 05:54] LABS: BASOPHILS # (AUTO) 0.1 X10^3/uL (0.0-0.1); BASOPHILS % (AUTO) 1.2 % (0.2-1.0); EOSINOPHILS # (AUTO) 0.2 x10^3/uL (0.0-0.2); EOSINOPHILS % (AUTO) 4.5 % (0.9-2.9); HEMATOCRIT 30.5 % (36.0-47.0); HEMOGLOBIN 9.7 g/dL (12.0-16.0); LYMPHOCYTES # (AUTO) 1.1 X10^3/uL (1.3-2.9); LYMPHOCYTES % (AUTO) 25.5 % (21.0-51.0); MEAN CORPUSCULAR HEMOGLOBIN 25.1 pg (27.0-34.0); MEAN CORPUSCULAR HGB CONC 31.9 g/dL (33.0-35.0); MEAN CORPUSCULAR VOLUME 78.6 fL (80.0-100.0); MEAN PLATELET VOLUME 8.8 fL (7.4-11.0); MONOCYTES # (AUTO) 0.3 x10^3/uL (0.3-0.8); MONOCYTES % (AUTO) 7.9 % (0.0-13.0); NEUTROPHILS # (AUTO) 2.6 x10^3/uL (2.2-4.8); NEUTROPHILS % (AUTO) 60.9 % (42.0-75.0); PLATELET COUNT 202 X10^3/uL (150.0-450.0); RED BLOOD COUNT 3.87 X10^6/uL (3.5-5.4); RED CELL DISTRIBUTION WIDTH 18.6 % (11.6-16.5); WHITE BLOOD COUNT 4.3 X10^3/uL (3.6-10.0)
[2018-07-04 06:10] LABS: ALANINE AMINOTRANSFERASE 22 Units/L (12-78); ALBUMIN 2.9 g/dL (3.4-5.0); ALKALINE PHOSPHATASE 130 Units/L (46-116); ASPARTATE AMINO TRANSFERASE 16 Units/L (15-37); BLOOD UREA NITROGEN 13 mg/dL (7-18); CALCIUM 8.4 mg/dL (8.5-10.1); CARBON DIOXIDE 30.7 mmol/L (21-32); CHLORIDE 108 mmol/L (98-107); COR CA(FOR HYPOALB) 9.3 mg/dL (8.5-10.1); CREATININE 0.84 mg/dL (0.55-1.02); SODIUM 143 mmol/L (136-145); TOTAL PROTEIN 6.3 g/dL (6.4-8.2); eGFR NON BLACK RACES > 60 (>60)
[2018-07-04 06:41] LABS: PLATELET MORPHOLOGY COMMENT NORMAL (NORMAL)
[2018-07-04 06:43] LABS: ANISOCYTOSIS SLIGHT; HYPOCHROMASIA SLIGHT
[2018-07-04] MEDS ORDERED: NS 100 ML IV + SPIKE MINIBAG* 100 ML IV ONE ×2 (07:43→20:05)
[2018-07-04] MEDS: ASPIRIN EC 81 MG PO SCH (08:40)
[2018-07-04] MEDS: PROTONIX INJ 40 MG VIAL IVP SCH (08:40)
[2018-07-04] MEDS: HEMOCYTE-PLUS PO SCH (08:40)
[2018-07-04] MEDS: TEFLARO IV SCH ×2 (08:40→20:11)
[2018-07-04] MEDS: ZESTRIL TAB 10 MG PO SCH ×2 (08:40→20:11)
[2018-07-04] MEDS: ULTRAM PO PRN ×2 (10:49→15:34)
[2018-07-04] MEDS: TYLENOL 325 MG TAB PO PRN ×2 (10:49→15:35)
[2018-07-04] MEDS: ZOFRAN INJ 4 MG VIAL IVP PRN (10:49)
--- NOTE | 2018-07-04 11:54 | PCM.PROG ---
Progress Note - Progress Note for Day of Date of Exam: 07/04/18 - Subjective Subjective: 62 WF ADMITTED ON 06/28 WITH RUE CELLULITIS AND ABDOMINAL PAIN. PT CURRENTLY ON IV ATBX FOR CELLULITIS WITH IMPROVEMENT IN REDNESS, CONTINUED PAIN TO SITE. PT CONTINES TO CO WEAKNESS AND FATIGUE, CASE MANAGEMENT CONSULT FOR POSSIBLE REHAB PLACEMENT FOR PHYSICAL THERAPY, FAMILY UNABLE TO CARE FOR HER AT HOME AT THIS TIME. PT IS FALL RISK, PT ALSO HAS HISTORY OF PSYCHIATRIC ILLNESS WITH THREATS OF SELF HARM IN THE PAST REQUIRING INPT MENTAL HEALTH TREATMENT. - Past Medical Family Social History Past Med/Fam/Surg Hx: No changes since H&P Allergies: Allergies codeine Adverse Reaction (Verified 06/28/18 10:44) - Review of Systems ROS: No change since H&P - Vital Signs and I&O's Vital Signs: Temperature 98.1 F Pulse Rate [Left Brachial] 56 Respiratory Rate 18 Blood Pressure [Right Arm] 159/81 Blood Pressure [Left Arm] 110/56 Blood Pressure 156/99 O2 Sat by Pulse Oximetry 98 Intake and Output: Intake & Output 07/01/18 07/02/18 07/03/18 07/04/18 11:59 11:59 11:59 11:59 Intake Total 743 / 743 2033 / 2033 1650 / 1650 1330 / 1330 Balance 743 / 743 2033 1650 / 1650 1330 / 1330 - Physical Exam Oriented: Normal Eyes: Normal Ear: Normal Nose: Normal Throat: Normal Respiratory: Normal Cardiovascular: Normal, Edema : Normal Auscultation: Bowel Sounds: Normal Tenderness: RUQ, Epigastric Skin: Decreased Turgur, Rash, Red, Tender, Hot (RUE, AC AREA) Musculoskeletal: Right, Arm, Back:Lumbar Psychiatric: Depression Mood Description: Depressed Speech Pattern: Clear, Appropriate - Laboratory and Diagnostics Result Diagrams: 07/04/18 05:09 07/04/18 05:09 Labs: 06/28/18 11:14 Blood Blood Culture - Final 06/28/18 11:06 Blood Blood Culture - Final Laboratory WBC 4.3 X10^3/uL (3.6-10.0) 07/04/18 05:09 RBC 3.87 X10^6/uL (3.5-5.4) 07/04/18 05:09 Hgb 9.7 g/dL (12.0-16.0) L 07/04/18 05:09 Hct 30.5 % (36.0-47.0) L 07/04/18 05:09 MCV 78.6 fL (80.0-100.0) L 07/04/18 05:09 MCH 25.1 pg (27.0-34.0) L 07/04/18 05:09 MCHC 31.9 g/dL (33.0-35.0) L 07/04/18 05:09 RDW 18.6 % (11.6-16.5) H 07/04/18 05:09 Plt Count 202 X10^3/uL (150.0-450.0) 07/04/18 05:09 Plt Count Comment Adequate (ADEQUATE) 07/04/18 05:09 MPV 8.8 fL (7.4-11.0) 07/04/18 05:09 Neut % (Auto) 60.9 % (42.0-75.0) 07/04/18 05:09 Lymph % (Auto) 25.5 % (21.0-51.0) 07/04/18 05:09 [place] % (Auto) 7.9 % (0.0-13.0) 07/04/18 05:09 Eos % (Auto) 4.5 % (0.9-2.9) H 07/04/18 05:09 Baso % (Auto) 1.2 % (0.2-1.0) H 07/04/18 05:09 Neut # (Auto) 2.6 x10^3/uL (2.2-4.8) 07/04/18 05:09 Lymph # (Auto) 1.1 X10^3/uL (1.3-2.9) L 07/04/18 05:09 [place] # (Auto) 0.3 x10^3/uL (0.3-0.8) 07/04/18 05:09 Eos # (Auto) 0.2 x10^3/uL (0.0-0.2) 07/04/18 05:09 Baso # (Auto) 0.1 X10^3/uL (0.0-0.1) 07/04/18 05:09 Absolute Nucleated RBC 0.1 /100WBC 07/04/18 05:09 Plt Morphology Comment Normal (NORMAL) 07/04/18 05:09 RBC Morphology Abnormal (NORMAL) A 07/04/18 05:09 Hypochromasia Slight A 07/04/18 05:09 Anisocytosis Slight A 07/04/18 05:09 Sodium 143 mmol/L (136-145) 07/04/18 05:09 Corrected Sodium TNP 07/04/18 05:09 Potassium 3.9 mmol/L (3.5-5.1) 07/04/18 05:09 Chloride 108 mmol/L (98-107) H 07/04/18 05:09 Carbon Dioxide 30.7 mmol/L (21-32) 07/04/18 05:09 BUN 13 mg/dL (7-18) 07/04/18 05:09 Creatinine 0.84 mg/dL (0.55-1.02) 07/04/18 05:09 Est GFR (MDRD) Af Amer > 60 (>60) 07/04/18 05:09 Est GFR (MDRD) Non-Af > 60 (>60) 07/04/18 05:09 Glucose 89 mg/dL (65-99) 07/04/18 05:09 Calcium 8.4 mg/dL (8.5-10.1) L 07/04/18 05:09 Corrected Calcium 9.3 mg/dL (8.5-10.1) 07/04/18 05:09 Total Bilirubin 0.10 mg/dL (0.2-1.0) L 07/04/18 05:09 AST 16 Units/L (15-37) 07/04/18 05:09 ALT 22 Units/L (12-78) 07/04/18 05:09 Alkaline Phosphatase 130 Units/L (46-116) H 07/04/18 05:09 Total Protein 6.3 g/dL (6.4-8.2) L 07/04/18 05:09 Albumin 2.9 g/dL (3.4-5.0) L 07/04/18 05:09 Globulin 3.4 g/dL (2.5-4.5) 07/04/18 05:09 Albumin/Globulin Ratio 0.9 Ratio (1.1-2.1) L 07/04/18 05:09 Specimen Type Clean catch urine 06/29/18 06:56 Urine Color Yellow (YELLOW) 06/29/18 06:56 Urine Appearance Clear (CLEAR) 06/29/18 06:56 Urine pH 6.0 (5.0 - 8.0) 06/29/18 06:56 Ur Specific [place] 1.025 (1.000-1.030) 06/29/18 06:56 Urine Protein 2+ (NEGATIVE) 06/29/18 06:56 Urine Glucose (UA) Negative (NEGATIVE) 06/29/18 06:56 Urine Ketones Negative (NEGATIVE) 06/29/18 06:56 Urine Occult Blood Negative (NEGATIVE) 06/29/18 06:56 Urine Nitrite Negative (NEGATIVE) 06/29/18 06:56 Urine Bilirubin Negative (NEGATIVE) 06/29/18 06:56 Urine Urobilinogen Normal (NORMAL) 06/29/18 06:56 Ur Leukocyte Esterase 1+ (NEGATIVE) 06/29/18 06:56 Urine RBC 0-2 /HPF (NONE SEEN) 06/29/18 06:56 Urine WBC 3-5 /HPF (NONE SEEN) 06/29/18 06:56 Ur Squamous Epith Cells Few /HPF (NEGATIVE) 06/29/18 06:56 Urine Bacteria Negative /HPF (NEGATIVE) 06/29/18 06:56 Ur Culture Indicated? No/not indicated 06/29/18 06:56 Blood Type O POSITIVE 07/01/18 10:35 Antibody Screen Negative 07/01/18 10:35 Crossmatch See Detail 07/01/18 10:35 - Plan (1) Right arm cellulitis Status: Acute Plan: US RUE ON ADMISSION. ASA, AM LABS. BP CONTROL, PPI THERAPY, NAUSEA MEDICATION. IV ATBX THERAPY, BLOOD CULTURES. CT HEAD DUE TO WEAKNESS AND CONTINUED CO PALENCIA'S (2) Abdominal pain Status: Acute Plan: GALL BLADDER EVALUATION, PPI, NAUSEA CONTROL. HIDA SCAN WITH ABNORMAL EF (3) Weakness Status: Acute (4) Hypertension Status: Chronic Qualifiers: Hypertension type: essential hypertension Qualified Code(s): I10 - Essential (primary) hypertension (5) Depression Status: Chronic Qualifiers: Depression Type: major depressive disorder (6) CAD (coronary artery disease) Status: Chronic (7) GERD (gastroesophageal reflux disease) Status: Chronic (8) Symptomatic anemia Status: Acute (9) History of CVA (cerebrovascular accident) Status: Acute Plan: BP AND LIPID CONTROL. ASPIRIN THERAPY SUPPORTIVE CARE
[2018-07-04] MEDS: AMBIEN PO PRN (21:21)
[2018-07-05 05:26] LABS: BASOPHILS % (AUTO) 0.9 % (0.2-1.0); EOSINOPHILS # (AUTO) 0.2 x10^3/uL (0.0-0.2); EOSINOPHILS % (AUTO) 3.9 % (0.9-2.9); HEMATOCRIT 29.6 % (36.0-47.0); HEMOGLOBIN 9.5 g/dL (12.0-16.0); LYMPHOCYTES # (AUTO) 0.9 X10^3/uL (1.3-2.9); LYMPHOCYTES % (AUTO) 20.6 % (21.0-51.0); MEAN CORPUSCULAR HEMOGLOBIN 25.3 pg (27.0-34.0); MEAN CORPUSCULAR HGB CONC 32.1 g/dL (33.0-35.0); MEAN CORPUSCULAR VOLUME 78.9 fL (80.0-100.0); MEAN PLATELET VOLUME 8.7 fL (7.4-11.0); MONOCYTES # (AUTO) 0.4 x10^3/uL (0.3-0.8); MONOCYTES % (AUTO) 9.1 % (0.0-13.0); NEUTROPHILS # (AUTO) 2.9 x10^3/uL (2.2-4.8); NEUTROPHILS % (AUTO) 65.5 % (42.0-75.0); PLATELET COUNT 207 X10^3/uL (150.0-450.0); RED BLOOD COUNT 3.76 X10^6/uL (3.5-5.4); RED CELL DISTRIBUTION WIDTH 18.8 % (11.6-16.5); WHITE BLOOD COUNT 4.4 X10^3/uL (3.6-10.0)
[2018-07-05 05:42] LABS: ALANINE AMINOTRANSFERASE 19 Units/L (12-78); ALBUMIN 2.9 g/dL (3.4-5.0); ALKALINE PHOSPHATASE 123 Units/L (46-116); ASPARTATE AMINO TRANSFERASE 14 Units/L (15-37); BLOOD UREA NITROGEN 9 mg/dL (7-18); CALCIUM 8.4 mg/dL (8.5-10.1); CARBON DIOXIDE 29.9 mmol/L (21-32); CHLORIDE 107 mmol/L (98-107); COR CA(FOR HYPOALB) 9.3 mg/dL (8.5-10.1); CREATININE 0.85 mg/dL (0.55-1.02); SODIUM 142 mmol/L (136-145); TOTAL PROTEIN 6.1 g/dL (6.4-8.2); eGFR NON BLACK RACES > 60 (>60)
[2018-07-05] MEDS: CARAFATE PO SCH ×4 (05:46→20:45)
[2018-07-05 06:06] LABS: ANISOCYTOSIS SLIGHT; HYPOCHROMASIA SLIGHT; PLATELET MORPHOLOGY COMMENT NORMAL (NORMAL)
[2018-07-05] MEDS ORDERED: NS 100 ML IV 100 ML IV ONE (08:28)
[2018-07-05] MEDS: ASPIRIN EC 81 MG PO SCH (08:37)
[2018-07-05] MEDS: PROTONIX INJ 40 MG VIAL IVP SCH (08:38)
[2018-07-05] MEDS: HEMOCYTE-PLUS PO SCH (08:38)
[2018-07-05] MEDS: ZESTRIL TAB 10 MG PO SCH ×2 (08:38→20:45)
[2018-07-05] MEDS ORDERED: TEFLARO 600 MG in NS 100 ML IV + SPIKE MINIBAG* 100 ML IV NR (09:00)
[2018-07-05] MEDS: ZOFRAN INJ 4 MG VIAL IVP PRN (10:13)
[2018-07-05] MEDS: TYLENOL 325 MG TAB PO PRN (12:18)
[2018-07-05] MEDS: ULTRAM PO PRN (15:38)
[2018-07-05] MEDS ORDERED: VISTARIL PO ONE (18:02)
[2018-07-05] MEDS: TEFLARO 600 MG in NS 100 ML IV + SPIKE MINIBAG* 100 ML IV SCH (20:45)
[2018-07-05] MEDS: AMBIEN PO PRN (20:50)
[2018-07-06] MEDS: CATAPRES TAB 0.1 MG PO PRN ×2 (04:30→15:57)
[2018-07-06] MEDS: CARAFATE PO SCH ×4 (05:41→16:37)
[2018-07-06 06:29] LABS: BASOPHILS % (AUTO) 0.9 % (0.2-1.0); EOSINOPHILS # (AUTO) 0.2 x10^3/uL (0.0-0.2); EOSINOPHILS % (AUTO) 3.4 % (0.9-2.9); HEMATOCRIT 31.4 % (36.0-47.0); HEMOGLOBIN 10.1 g/dL (12.0-16.0); LYMPHOCYTES % (AUTO) 19.4 % (21.0-51.0); MEAN CORPUSCULAR HEMOGLOBIN 25.5 pg (27.0-34.0); MEAN CORPUSCULAR HGB CONC 32.1 g/dL (33.0-35.0); MEAN CORPUSCULAR VOLUME 79.4 fL (80.0-100.0); MEAN PLATELET VOLUME 8.6 fL (7.4-11.0); MONOCYTES # (AUTO) 0.4 x10^3/uL (0.3-0.8); MONOCYTES % (AUTO) 8.2 % (0.0-13.0); NEUTROPHILS # (AUTO) 3.6 x10^3/uL (2.2-4.8); NEUTROPHILS % (AUTO) 68.1 % (42.0-75.0); PLATELET COUNT 236 X10^3/uL (150.0-450.0); RED BLOOD COUNT 3.95 X10^6/uL (3.5-5.4); RED CELL DISTRIBUTION WIDTH 20.2 % (11.6-16.5); WHITE BLOOD COUNT 5.3 X10^3/uL (3.6-10.0)
[2018-07-06 06:47] LABS: ALANINE AMINOTRANSFERASE 21 Units/L (12-78); ALBUMIN 3.1 g/dL (3.4-5.0); ALKALINE PHOSPHATASE 132 Units/L (46-116); ASPARTATE AMINO TRANSFERASE 16 Units/L (15-37); BLOOD UREA NITROGEN 9 mg/dL (7-18); CALCIUM 8.7 mg/dL (8.5-10.1); CARBON DIOXIDE 28.4 mmol/L (21-32); CHLORIDE 105 mmol/L (98-107); COR CA(FOR HYPOALB) 9.4 mg/dL (8.5-10.1); COR NA(FOR HYPERGLY) 142 mmol/L (136-145); CREATININE 0.81 mg/dL (0.55-1.02); SODIUM 142 mmol/L (136-145); TOTAL PROTEIN 6.5 g/dL (6.4-8.2); eGFR NON BLACK RACES > 60 (>60)
[2018-07-06] MEDS ORDERED: POTASSIUM CHL 60 MEQ/NS 0.45% 500 ML IV PRN (06:59)
[2018-07-06] MEDS ORDERED: K-LYTE EFFERVESCENT PO PRN (06:59)
[2018-07-06] MEDS ORDERED: K-RIDER 10 MEQ/NS 100 ML 10 MEQ/100 ML BAG IV PRN (06:59)
[2018-07-06] MEDS ORDERED: POTASSIUM CHLORIDE LIQ 20 MEQ UDC PO PRN (06:59)
[2018-07-06] MEDS ORDERED: POTASSIUM CHL 40 MEQ/NS 0.45% 500 ML IV PRN (06:59)
[2018-07-06 07:08] LABS: ANISOCYTOSIS 1+; PLATELET MORPHOLOGY COMMENT NORMAL (NORMAL)
[2018-07-06] MEDS: HEMOCYTE-PLUS PO SCH (09:06)
[2018-07-06] MEDS: ZESTRIL TAB 10 MG PO SCH (09:06)
[2018-07-06] MEDS: ASPIRIN EC 81 MG PO SCH (09:06)
[2018-07-06] MEDS: PROTONIX INJ 40 MG VIAL IVP SCH (09:06)
[2018-07-06] MEDS: TEFLARO 600 MG in NS 100 ML IV + SPIKE MINIBAG* 100 ML IV SCH (09:07)
[2018-07-06] MEDS ORDERED: DULCOLAX TAB EC 5 MG PO ONE (13:09)
[2018-07-06 18:30] VITALS: BP 172/78
== END 2018-07-06 18:30 | DRG 603 ==
LOC: ICU → MED/SURG 06-29 10:38
PROVIDERS: ADMIT Internal Medicine; ATTEND Internal Medicine
DX: F32.89 Other specified depressive episodes; D64.89 Other specified anemias; R10.10 Upper abdominal pain, unspecified; Z86.73 Personal history of transient ischemic attack (TIA), and cerebral infarction without residual deficits; I25.10 Atherosclerotic heart disease of native coronary artery without angina pectoris; R78.2 Finding of cocaine in blood; R11.2 Nausea with vomiting, unspecified; K90.49 Malabsorption due to intolerance, not elsewhere classified; K21.9 Gastro-esophageal reflux disease without esophagitis; R53.1 Weakness; R26.89 Other abnormalities of gait and mobility; L03.113 Cellulitis of right upper limb; I10 Essential (primary) hypertension
CPT/HCPCS: 36415; 36430; 70450; 76705; 78227; 80053; 81001; 83735; 85014; 85018; 85025; 86850; 86900; 86901; 86922; 87040; 93971; 97110; 97162; 97166; 97535; 99231; A4222; C9113; P9016; Q0177; G0378; J0712; J2405; J2550; J3490; J7030; J7040; J7050